=== PATIENT | male | born 1965 | race Caucasian/White ===

== ENCOUNTER 2023-03-03 10:36 | Emergency (ER) | payer OTHER, SELFPAY ==
[2023-03-03 10:37] VITALS: BP 170/105; PULSE 86; RESP 16; TEMP 36.6; O2SAT 96; BMI 30.3
--- NOTE | 2023-03-03 10:53 | VDLE_ITS ---
Reason For Study: LEG PAIN RIGHT LEFT GSV is normal. CFV is compressible, spontaneous, phasic, CFV is compressible, spontaneous, phasic, competent, and demonstrates normal competent and demonstrates normal augmentation. augmentation. FV is compressible, spontaneous, phasic, competent and demonstrates normal augmentation. POP V is compressible, spontaneous and phasic. T/P Trunk is compressible. Acute deep vein thrombosis is noted in the Gastrocnemius V. It is dilated and NONCOMPRESSIBLE. Acute deep vein thrombosis is noted in the PTV. It is dilated and NONCOMPRESSIBLE. Acute deep vein thrombosis is noted in the Per V. It is dilated and NONCOMPRESSIBLE. Procedure This is a venous duplex using B-mode, color flow and spectral Doppler. Exam performed portable in ED. The exam was diagnostic. A preliminary report was called and/or faxed to Dr. Caraballo. VL/Venous Duplex US, Unilateral Interpretation Summary Acute deep venous thrombosis right gastrocnemius, posterior tibial, and peronea l veins. Patent and compressible right great saphenous vein Normal flow patterns left common femoral vein Ordering Physician: Edmund Caraballo Referring Physician: N/A Performed By: Yoan Bennett RVT
--- NOTE | 2023-03-03 10:53 | ED.VIS.LOWEX ---
HPI History of Present Illness HPI Narrative: Patient presents with right leg pain and swelling that has been constant for the past 3 to 4 weeks. Patient states that it began after a 3-hour car ride to [place] and back. Patient states his pain is mainly over the right calf. Patient states he has some tingling in his second, third, and fourth toes. Patient denies any trauma or injury. Patient describes his pain as aching. Patient states it is worse with ambulation. Patient denies any weakness. Patient has been using a compression stocking which has been helping with some of the swelling. Chief Complaint: Lower Extremity Injury Informant: patient Onset/Context/Timing Onset: Month(s) (1) Context: Gradual Onset Timing: Continuous Quality of Pain: Aching Location: Right leg Worsened by: Ambulation Relieved by: Nothing Associated Symptoms Associated Symptoms: Positive for Parasthesia; Negative for Weakness or Loss of [facility]untion [facility] History (Updated 03/03/23 @ 13:[address] Edmund Caraballo DO) Hypertension Home Medications apixaban 5 mg tablet (Eliquis) 5 mg PO BID #74 tabs 03/03/23 [Rx Last Taken Unknown] Allergy/AdvReac Type Severity Reaction Status Date / Time sulfamethoxazole Allergy Other Verified 03/03/23 10:40 [From Bactrim] trimethoprim [From Bactrim] Allergy Other Verified 03/03/23 10:40 adhesive tape AdvReac Rash Verified 03/03/23 10:40 Surgical History (Updated 03/03/23 @ 10:[address] Edmund Caraballo DO) Hx of cholecystectomy Social History Smoking Status: Never smoker ROS ROS ED Constitutional Constitutional ED: Denies chills or fever(s) Eyes Eyes: Denies blurry vision or change in vision ENT ENT ED: Denies rhinorrhea or sore throat Cardiovascular Cardiovascular: Denies chest pain or palpitations Respiratory/Chest Respiratory/Chest: Denies cough or dyspnea Gastrointestinal Gastrointestinal: Denies nausea or vomiting Genitourinary Genitourinary ED: Denies dysuria or hematuria Musculoskeletal Musculoskeletal: Denies back pain or neck pain Integumentary Denies abscess or rash Neurologic Neurologic: Denies headache(s) or weakness Allergic/Immunologic Allergic/Immunologic ED: Denies mouth swelling or urticaria EXAM Physical Exam Const Vital Signs: 03/03/23 10:37 Temperature 97.8 F Temperature Source Temporal Pulse Rate 86 Respiratory Rate 16 Blood Pressure 170/105 H Blood Pressure Mean 126 Pulse Ox 96 Oxygen Delivery Method Room Air Positive well nourished and well developed General Appearance ED: well developed and NAD HEENT Reports moist mucous membranes Neck full ROM and supple Extremity Extremity Narrative: There is tenderness and edema over the right calf. There is no ecchymosis. There is no bony crepitance or step-off. There is no obvious deformity. Posterior tibial pulses and pedal pulses are equal bilaterally. Sensation was intact to light touch in all digits. Capillary refill was less than 2 seconds in all digits. There is no cyanosis or pallor noted. Neuro oriented x3, CN's II-XII intact bilaterally, moves all extremities and no sensory deficits noted Sensorium / Orientation: alert Motor Exam: strength 5/5 throughout Psych mental status grossly normal Skin Skin Narrative: Skin is warm and dry. There is no ecchymosis or pallor noted. There is no cyanosis noted. MDM MDM MDM Narrative Medical decision making narrative: Differential diagnosis includes muscular strain and DVT of the right calf. Venous duplex of the right lower extremity will be obtained to assess for DVT. Radiography Diagnostic Testing: Venous duplex of the right lower extremity showed DVT in the gastrocnemius vein, posterior tibial vein, and peroneal vein. Treatment and Re-Evaluation Narrative: Patient was advised of his findings. Patient was given a dose of Eliquis here. Patient was given a prescription for Eliquis. Patient was instructed to keep his leg elevated. Patient was given referral for primary care physician. Patient was instructed to take Tylenol as needed for pain. Patient understood and was agreeable with the plan. All questions were answered. Discharge Plan Triage Chief Complaint: Lower Extremity Injury ED Provider: Edmund Caraballo Dx/Rx/DC Orders Clinical Impression: Acute deep vein thrombosis (DVT) of right lower extremity Instructions: ED Deep Vein Thrombosis (DVT) Prescriptions: New Eliquis 5 mg tablet 5 mg PO BID Qty: 74 0RF Rx Instructions: 10 mg twice a day for the first week. Then 5 mg twice a day. Primary Care Provider: Care Physician,No Primary Referrals: Emely Rico DO [Med Staff - Journeyman Operator Assistant] - 5-7 Days NOT,DEFINED [Non-Staff] - Disposition Disposition: Home, Self Care
[2023-03-03] MEDS: HYDROcodone Bitartrate/Apap 5/325 Tablet PO (10:57)
[2023-03-03] MEDS: APIXABAN 5 MG TABLET 10 MG PO (13:53)
== END 2023-03-03 14:04 | disposition home or self-care (01) ==
PROVIDERS: Emergency Provider Emergency Medicine; Visit Provider Emergency Medicine
DX: I82.401 Acute embolism and thrombosis of unspecified deep veins of right lower extremity (principal); I10 Essential (primary) hypertension
CPT/HCPCS: 93971; 99283

== ENCOUNTER → 2023-09-24 | Outpatient (CLI) | payer SELFPAY ==
--- NOTE | 2023-09-24 09:23 | VDLE_ITS ---
Reason For Study: RLE DVT Follow Up RIGHT LEFT GSV is normal. CFV is compressible, spontaneous, phasic, CFV is compressible, spontaneous, phasic, competent, and demonstrates normal competent and demonstrates normal augmentation. augmentation. FV is compressible, spontaneous, phasic, competent and demonstrates normal augmentation. POP V is compressible, spontaneous, phasic, competent and demonstrates normal augmentation. T/P Trunk is compressible. RT PerV is compressible. Rt GastrocV and Rt PTV are partially compressible with bright intraluminal echoes consistent with Chronic DVT. Procedure This is a venous duplex using B-mode, color flow and spectral Doppler. Exam performed in department. A preliminary report was called and/or faxed to Dr. Griggs. VL/Venous Duplex US, Unilateral Interpretation Summary Chronic deep venous thrombosis right gastrocnemius and posterior tibial veins Patent and compressible right great saphenous vein Normal flow patterns left common femoral vein Improvement noted from the previous examination of March 03, 2023 Ordering Physician: Marylin Griggs Referring Physician: Marylin Griggs Performed By: Shilpi Duque, BIENVENIDO, RVT
== END | disposition home or self-care (01) ==
PROVIDERS: PCP Internal Medicine; Referring Provider Internal Medicine; Visit Provider Internal Medicine
DX: I82.4Y1 Acute embolism and thrombosis of unspecified deep veins of right proximal lower extremity (principal)
CPT/HCPCS: 93971

== ENCOUNTER → 2024-09-19 15:39 | Outpatient (REF) | payer MEDICAID, SELFPAY ==
[2024-09-19 16:20] LABS: Estradiol 26.3 pg/mL
[2024-09-21 07:28] LABS: PROGESTERONE 0.2 ng/mL (0.0-0.5)
[2024-09-23 13:08] LABS: DHEA Sulfate 97.2 ug/dL (48.9-344.2); G6PD Quant Test 300 (127-427); Red Blood Cell Count Test/G6PD 5.21 x10E6/uL (4.14-5.80)
== END ==
LOC: LABSPEC 15:39
PROVIDERS: PCP Internal Medicine; Referring Provider Nurse Practitioner Family; Visit Provider Nurse Practitioner Family
DX: E29.1 Testicular hypofunction (principal); R53.82 Chronic fatigue, unspecified; R06.00 Dyspnea, unspecified
CPT/HCPCS: 82627; 82670; 82955; 84144; 84403; 82626

== ENCOUNTER → 2024-12-08 | Outpatient (CLI) | payer MEDICAID, SELFPAY ==
--- NOTE | 2024-12-08 12:58 | VDLE_ITS ---
Reason For Study Reason For Study: Hx of DVT RIGHT LEFT CFV is compressible, spontaneous, phasic, competent GSV is normal. and demonstrates normal augmentation. CFV is compressible, spontaneous, phasic, competent, Procedure and demonstrates normal augmentation. This is a venous duplex using B-mode, color flow and FV is compressible, spontaneous, phasic, competent spectral Doppler. and demonstrates normal augmentation. Exam performed in department. POP V is compressible, spontaneous, phasic, competent A preliminary report was called and/or faxed to Jose and demonstrates normal augmentation. DO Kayla. T/P Trunk is compressible. PTV is compressible. LT PerV is compressible. VL/Venous Duplex US, Unilateral Interpretation Summary Deep veins of the left lower extremity are patent and compressible segmentally. There is no evidence of left lower extremity deep vein thrombosis. The left great saphenous vein appears patent an d compressible segmentally. Ordering Physician: Jose Garza Referring Physician: Jose Garza Performed By: Shilpi Duque RVT, RDCS and Student
== END | disposition home or self-care (01) ==
LOC: CVS 12:57
PROVIDERS: PCP Family Medicine; Referring Provider Family Medicine; Visit Provider Family Medicine
DX: M79.662 Pain in left lower leg (principal); Z86.718 Personal history of other venous thrombosis and embolism
CPT/HCPCS: 93971

== ENCOUNTER 2025-03-20 10:50 | Inpatient (IN) | payer MEDICAID, SELFPAY ==
[2025-03-20] VITALS (7 sets, daily range): BP systolic 158–165; BP diastolic 89–104; PULSE 87–95; RESP 17–24; TEMP 36.8–37.3; O2SAT 90–96; BMI 32.5
--- NOTE | 2025-03-20 10:52 | EKG12_ITS ---
Test Reason : CP Blood Pressure : */* mmHG Vent. Rate : 95 BPM Atrial Rate : 95 BPM P-R Int : 176 ms QRS Dur : 144 ms QT Int : 404 ms P-R-T Axes : 32 5 8 degrees QTcB Int : 507 ms Normal sinus rhythm Right bundle branch block Abnormal ECG Confirmed by TETE DE LOS SANTOS, GERSON ([id number]), scientific publications editor ABDOUL GRAYSON ([id number]) on 03/24/2025 7:03:25 AM Referred By: Jim Cast Confirmed By: GERSON EPSTEIN MD
--- NOTE | 2025-03-20 11:03 | CT_ITS ---
PROCEDURE: ABDOMEN/PELVIS W IV CONT ONLY 03/20/2025 REASON FOR EXAM: EPIGASTRIC ABDOMINAL PAIN. TECHNIQUE: Abdomen and pelvis CT with intravenous contrast. Coronal and Sagittal reconstruction series were provided. PATIENT PREPARATION: Per protocol ORAL CONTRAST TYPE: None. CONTRAST: Isovue-300 VOLUME: 100 mL One or more dose reduction techniques were used (e.g., Automated exposure control, adjustment of the mA and/or kV according to patient size, use of iterative reconstruction technique. RADIATION DOSE SUMMARY: CTDlvol: 18.2 mGy DLP: 1678.13 mGycm COMPARISON: None FINDINGS: Lung bases: Unremarkable Liver: Diffuse fatty infiltration. Gallbladder: Surgically absent. Spleen: Normal size. Pancreas: Normal size without evidence of mass surrounding inflammation or ductal dilation. Adrenals: Unremarkable Kidneys: Unremarkable Bladder: Unremarkable Small right inguinal hernia containing fat. Bowel: Colonic diverticulosis without diverticulitis. Appendix: Unremarkable Lymph nodes: No suspicious lymph node enlargement. Vasculature: Unremarkable Peritoneum / Retroperitoneum: Unremarkable Bones: Degenerative changes of the spine. CT/Abdomen/Pelvis W IV Cont ONLY IMPRESSION: Diffuse fatty infiltration of the liver. Status post cholecystectomy. OVERALL FINAL ASSESSMENT: . LI-RADS is not meant to be used in patients <18 years or patients with cirrhosi s due to congenital hepatic fibrosis or due to vascular disorders, because these patients have a lower chance of developing HC C. Reading Location: [place] [id number]
--- NOTE | 2025-03-20 11:04 | ED.VIS.GI ---
HPI HPI - GI History of Present Illness Chief Complaint: Abd Pain Detail of Chief Complaint: Epigastric abdominal pain. Informant: patient and spouse/S.O. Abdominal Pain/Flank Pain Onset: Days Context: Sudden Onset Timing: Continuous Quality: Aching Location: Diffuse and Epigastric Current Severity: Moderate Maximum Severity: Moderate Worsened by: Nothing Relieved by: Nothing Nausea/Vomiting/Emesis GI Symptom: Positive for Nausea and Vomiting Onset: Today Severity: Mild Diarrhea/Melena/Hematochezia GI Symptom: Positive for - (Constipation); Negative for Diarrhea, Melena or Hematochezia Associated Symptoms Associated Symptoms: Negative for Dysuria, Frequency, Hematuria or Urgency Narrative Narrative: 59-year-old male history of prior DVT no longer on any anticoagulants. History of cholecystectomy. History of ventral hernia repair with mesh done earlier this year at [place]. States for 2 and half days since Sunday has developed sudden onset of epigastric and diffuse abdominal pain. Going to his back. Associated with nausea and vomiting today. No diarrhea. No melena. No hematemesis. No fever or weight loss. No prior history of this pain. Decreased appetite. Denies any dysuria. Prior similar symptoms: No Recent Illness/Hospitalization: No PFSH PFS Medical History Hypertension History of dislocation of knee HLD (hyperlipidemia) DVT (deep venous thrombosis) Home Medications ?Medication ?Instructions ?Recorded ?Last Taken ?Type cholecalciferol (vitamin D3) 125 125 mcg PO DAILY 10/04/23 Unknown History mcg (5,000 unit) capsule coenzyme Q10 30 mg capsule 30 mg PO DAILY 10/04/23 Unknown History losartan 100 mg tablet 100 mg PO DAILY 10/04/23 Unknown History diindolylmethane 50 mg-herbal 1 cap PO DAILY 03/20/25 Unknown History drugs 50 mg capsule (DIM-plus) fluconazole 200 mg tablet 400 mg PO DAILY 03/20/25 Unknown History methocarbamol 500 mg tablet 500 mg PO DAILY 03/20/25 03/19/25 History primaquine 26.3 mg (15 mg base) 2 tab PO DAILY 03/20/25 Unknown History tablet testosterone cypionate 200 mg/mL 200 mg IM QWEEK 03/20/25 03/11/25 History intramuscular oil Allergy/AdvReac Type Severity Reaction Status Date / Time sulfamethoxazole (From Allergy Other Verified 03/20/25 10:53 Bactrim) trimethoprim (From Bactrim) Allergy Other Verified 03/20/25 10:53 adhesive tape AdvReac Rash Verified 03/20/25 10:53 Family History Other Asthma Breast cancer CAD (coronary artery disease) CVA (cerebral vascular accident) Heart disease Hypertension Myocardial infarction Surgical History Hx of cholecystectomy Social History Smoking Status: Never smoker ROS ROS ED ROS Narrative Abdominal pain. Nausea vomiting. Constipation. Constitutional Constitutional ED: Denies chills or fever(s) ENT ENT ED: Denies ear pain Cardiovascular Cardiovascular: Denies chest pain Respiratory/Chest Respiratory/Chest: Denies cough or dyspnea Gastrointestinal Gastrointestinal: Reports abdominal pain, constipation, nausea and vomiting; Denies diarrhea or melena Genitourinary Genitourinary ED: Denies dysuria or hematuria Musculoskeletal Musculoskeletal: Reports back pain; Denies arthralgias Integumentary Denies abscess Neurologic Neurologic: Denies headache(s) Psychiatric Psychiatric: Denies anxiety Endocrine Endocrinology: Denies polydipsia Hematologic/Lymphatic Hematologic/Lymphatic: Denies easy bleeding Allergic/Immunologic Allergic/Immunologic ED: Denies mouth swelling, tongue swelling or urticaria EXAM Physical Exam Narrative Exam Narrative: 59-year-old male sitting upright in bed. Vital signs are stable afebrile. at bedside. H EENT exam pupils round reactive light. Mytrex membranes. Neck nontender no JVD. No lymphadenopathy. Lungs clear to auscultation bilaterally. Heart regular rhythm rate about 95 no murmur. Chest wall ribs nontender. Abdomen mildly distended. Decreased bowel sounds. Tender primarily in the epigastric region. No rebound or guarding. No rigidity. No obvious hernia or mass. No pulsatile mass. Right upper right lower quadrant unremarkable. Moving all 4 extremities. Nontender no edema. Normal strength. Back nontender. Neurologically is awake alert. Answering questions following commands. Const Vital Signs: 03/20/25 10:51 03/20/25 11:50 03/20/25 12:00 Temperature 98.4 F Temperature Source Oral Pulse Rate 95 89 87 Respiratory Rate 22 H 24 H Blood Pressure 162/104 H Blood Pressure Mean 123 Pulse Ox 96 94 95 Oxygen Delivery Method Room Air Room Air Room Air Positive well nourished and well developed; Negative for cachectic, contractures or unkempt General Appearance ED: well developed; Negative for unkempt, cachectic, contractures, NAD or pallor Nutritional Appearance: Negative for cachectic HEENT Reports moist mucous membranes normocephalic and atraumatic Eyes PERRL and EOMs intact bilaterally General Eye ED: Negative for pale conjunctiva or scleral icterus Neck no lymphadenopathy, supple and no JVD Resp normal respiratory effort and clear to auscultation bilaterally Cardio regular rate, regular rhythm, S1 normal heart sound, S2 normal heart sound and no murmurs GI no masses; Negative for non-tender or non-distended Inspection: abdominal distention Auscultation: hypoactive bowel sounds Palpation: soft and tender; Negative for guarding, rigid, hernia, mass, pulsatile mass or rebound tenderness present Back/Spine no CVA tenderness General Back: Negative for CVA tenderness Cervical Spine: Negative for cervical spine tenderness Thoracic Spine / Upper Back: Negative for thoracic spinal tenderness Lumbar Spine / Lower Back: Negative for lumbar spinal tenderness Extremity full ROM General Extremety ED: Negative for edema or tenderness General Extremity: Negative for edema Neuro CN's II-XII intact bilaterally Sensorium / Orientation: alert, oriented to person, oriented to place and oriented to time; Negative for orientation impaired, confused, lethargic or stuporous Motor Exam: strength 5/5 throughout Psych mental status grossly normal and thought process normal Appearance: Negative for unkempt Mood & Affect: Negative for depressed, anxious or tearful Skin no wounds General Skin Exam: Negative for jaundice or pallor Lesions: no lesions Rashes: no rashes MDM MDM MDM Narrative Medical decision making narrative: 59-year-old male abdominal pain for 2 and half days started Sunday. Differential would include pancreatitis, bowel obstruction, AAA, gastritis versus other etiologies. CAT scan and labs are being obtained. He will be treated with IV morphine for pain and Zofran. IV fluids. Repeat exam patient improved at 12:46 PM. He is having additional pain I will be given a second dose of morphine. His labs are consistent with acute pancreatitis. The hospitalist on page for admission. History & Record Review Discussion w/independent historian: Patient Additional record(s) reviewed:: Prior inpatient record, Prior outpatient record, Prior ED visit and Prior labs Lab Data Attestation: I reviewed the patient's lab results. Lab results narrative: CBC shows an elevated white count of 14.9. H&H is 17 and 51. Platelets of 271. CAT scan of the abdomen read by the radiologist showed no acute abnormality. No obstruction. No AAA. Chemistry shows sodium 134. Gap 12. Normal BUN and creatinine 12 and 0.8. Glucose 125. Liver enzymes are normal. Lipase is elevated at 479. UA negative. No nitrates. No white or red cells. No bacteria. Labs: Laboratory Results - last 24 hr 03/20/25 03/20/25 10:55 12:06 WBC 14.9 H RBC 5.46 Hgb 17.4 H Hct 51.6 MCV 94.5 H MCH 31.9 MCHC 33.7 RDW Std Deviation 46.7 H RDW Coeff of Marty 13.6 Plt Count 281 MPV 10.6 Immature Gran % (Auto) 0.700 Neut % (Auto) 82.7 H Lymph % (Auto) 4.6 L [place] % (Auto) 11.5 H Eos % (Auto) 0.2 Baso % (Auto) 0.3 Absolute Neuts (auto) 12.3 H Absolute Lymphs (auto) 0.69 L Nucleated RBC % 0 Sodium 134 Potassium 4.1 Chloride 96 L Carbon Dioxide 25.3 Anion Gap 12 BUN 12 Creatinine 0.86 Estim Creat Clear Calc 119.66 Est GFR (MDRD) Non-Af 99 BUN/Creatinine Ratio 13.8 Glucose 125 H Calcium 9.0 Total Bilirubin 0.48 AST 26 ALT 30 Alkaline Phosphatase 83 Total Protein 7.5 Albumin 4.3 Globulin 3.3 Albumin/Globulin Ratio 1.3 Lipase 479 H Urine Color Yellow Urine Clarity Sl. Cloudy Urine pH 8.0 Ur Specific [place] 1.010 Urine Protein 15 H Urine Glucose (UA) Normal Urine Ketones Negative Urine Occult Blood Negative Urine Nitrite Negative Urine Bilirubin Negative Urine Urobilinogen Normal Ur Leukocyte Esterase Negative Urine RBC 0 SEEN Urine WBC 0-5 SEEN Ur Squamous Epith Cells 0 SEEN Amorphous Sediment 1+ PHOS Urine Bacteria 0 SEEN Urine Mucus 0 SEEN Radiography Diagnostic Testing: Clinical Impression(s) from Imaging Studies Abdomen/Pelvis CT 03/20/25 11:03 IMPRESSION: Diffuse fatty infiltration of the liver. Status post cholecystectomy. OVERALL FINAL ASSESSMENT: . LI-RADS is not meant to be used in patients <18 years or patients with cirrhosis due to congenital hepatic fibrosis or due to vascular disorders, because these patients have a lower chance of developing HCC. Reading Location: [place] [address] Rhythm Strip Rhythm Strip: Sinus Rhythm Rate: 95 Ectopy: None EKG Initial EKG: Attestation: I personally reviewed and interpreted this EKG as follows: Interpretation: Sinus Rhythm, No Acute Injury Pattern and RBBB Discharge Plan Triage Chief Complaint: Abd Pain ED Provider: Yuval Balbuena Dx/Rx/DC Orders Clinical Impression: Abdominal pain, Acute pancreatitis Prescriptions: No Action cholecalciferol (vitamin D3) 125 mcg (5,000 unit) capsule 125 mcg PO DAILY losartan 100 mg tablet 100 mg PO DAILY coenzyme Q10 30 mg capsule 30 mg PO DAILY fluconazole 200 mg tablet 400 mg PO DAILY primaquine 26.3 mg (15 mg base) tablet 2 tab PO DAILY Patient Comments: PT TAKES AT BEDTIME testosterone cypionate 200 mg/mL oil 200 mg IM QWEEK Patient Comments: PT DOES ON WEDNESDAYS DIM-plus 50-50 mg capsule 1 cap PO DAILY methocarbamol 500 mg tablet 500 mg PO DAILY Patient Comments: PT ONLY HAS TAKEN ONCE, TOOK 2 ON 03/19/25. Primary Care Provider: Jose Garza Referrals: Jose Garza DO [Primary Care Provider] - Print Language: Spanish Disposition Disposition: [facility]3] Care [facility]
[2025-03-20] MEDS: 0.9% Normal Saline (1000mL) 1,000 ML 999 ML IV (11:17)
[2025-03-20] MEDS: morphine 8 MG/ML Syringe 6 MG IV ×2 (11:17→12:54)
[2025-03-20] MEDS: Ondansetron 4 MG/2 ML Vial IV (11:17)
[2025-03-20 11:43] LABS: Absolute Lymphocyte Count 0.69 X10^3/uL (0.83-4.51); Absolute Neutrophil Count 12.3 X10^3/uL (2.0-7.7); Basophil# 0.05 X10^3/uL; Basophil% 0.3 % (0-1); Eosinophil# 0.03 X10^3/uL; Eosinophils% 0.2 % (0-5); Hematocrit 51.6 % (40-54); Hemoglobin 17.4 g/dL (13.0-16.5); Lymphocyte # 0.69 X10^3/ul (0.83-4.51); Lymphocyte % 4.6 % (19-41); Mean Corp Hgb Conc 33.7 g/dL (32-36); Mean Corpuscular Hgb 31.9 pg (27.0-32.0); Mean Corpuscular Volume 94.5 fL (80-94); Mean Platelet Vol. 10.6 fl (6.2-12.0); Monocyte# 1.71 X10^3/uL; Monocyte% 11.5 % (0-10); NRBC Flagged by Analyzer 0 % (0-5); Neutrophil # 12.29 X10^3/uL (2.7-7.7); Neutrophil % 82.7 % (47-70); POSITIVE DIFFERENTIAL YES; Platelet Count 281 K/mm3 (150-450); RBC Distribution Width CV 13.6 % (11.6-14.6); RBC Distribution Width SD 46.7 fl (35.1-43.9); Red Blood Count 5.46 M/mm3 (4.6-6.2); White Blood Count 14.9 K/mm3 (4.4-11.0)
[2025-03-20 11:44] LABS: Differential Indicated SCAN CRITERIA MET
[2025-03-20 12:01] LABS: ALB/GLOB Ratio 1.3 RATIO (0.9-2.4); AST(SGOT) 26 U/L (<=37); Alanine Aminotransfer ALT/SGPT 30 U/L (<=46); Albumin, Serum 4.3 g/dL (3.4-4.8); Alkaline Phosphatase 83 U/L (40-129); Anion Gap 12 (5-15); BUN 12 mg/dL (4-19); BUN/Creat Ratio 13.8 RATIO (10-20); Carbon Dioxide 25.3 mmol/L (21.0-32.0); Chloride 96 mmol/L (98-108); Creatinine, Serum 0.86 mg/dL (0.70-1.20); EST Glomerular Filtration Rate 99 (>60); Estimated Creatinine Clearance 119.66 ml/min (50-250); Globulin 3.3 g/dL (2.2-4.2); Glucose 125 mg/dL (70-99); Potassium 4.1 mmol/L (3.3-5.1); Protein, Total 7.5 g/dL (5.9-8.4); Sodium Level 134 mmol/L (133-145); Total Bilirubin 0.48 mg/dL (0.00-1.30)
[2025-03-20 12:15] LABS: Lipase 479 U/L (13-75)
[2025-03-20 12:20] LABS: Bacteria 0 SEEN /hpf (None Seen); Mucous, Urine 0 SEEN /hpf (<or=2+); Red Blood Cells-Urine 0 SEEN /hpf (0-5); Squamous Epithelial Cells - UA 0 SEEN /hpf (0-5)
[2025-03-20 12:24] LABS: Color, Urine Yellow (Yellow); Glucose, Dipstick Normal (Normal); Ketone-Dipstick Negative (Negative); Leukocyte Esterase-Dipstick Negative /ul (Negative); Nitrite-Dipstick Negative (Negative); Occult Blood-Urine Negative /ul (Negative); Protein-Dipstick 15 mg/dl (Negative); Urine Bilirubin Dipstick Negative (Negative); Urine Clarity Sl. Cloudy (Clear); Urine Urobilinogen Normal (Normal)
[2025-03-20 12:34] LABS: Amorphous Sediment 1+ PHOS; White Blood Cells 0-5 SEEN /hpf (0-5)
--- NOTE | 2025-03-20 13:21 | PCM.HP.STD ---
HPI - General General Date of Admission: 03/20/25 HPI Narrative VANITA SOSA, is a 59 M who presents to the hospital with abdominal pain. His pain is mostly in the epigastric region and started 2 to 3 days ago. It does radiate to his back but he is unsure if it is related to food intake or not. It is not completely gone away, it waxes and wanes in intensity. He does have some nausea and vomiting because of the pain but no diarrhea. CT scan of the abdomen pelvis shows he does not have a gallbladder and there is no stranding or inflammation around his pancreas, just shows some fatty infiltration of the liver. His hemoglobin is elevated indicating dehydration, he did receive IV fluids in the ER as well as some pain meds. At the moment the source of pancreatitis is unclear but it does appear to be mild. He does state that there was no association with food but once the pain started he could not really eat all that much. 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 We did discuss that Diflucan does not treat those 2 infections, it does appear that his providers are part of an integrative health network that mostly does neurofeedback and sell supplements, he takes diindolylmethane which is associated with rash, nausea, vomiting, diarrhea as well as visual impairment and stroke. 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 Both of these medications are good to be discontinued as they are potentially causing all of his symptoms. [facility] Medical History Hypertension History of dislocation of knee HLD (hyperlipidemia) DVT (deep venous thrombosis) Home Medications ?Medication ?Instructions ?Recorded ?Last Taken ?Type cholecalciferol (vitamin D3) 125 125 mcg PO DAILY 10/04/23 Unknown History mcg (5,000 unit) capsule coenzyme Q10 30 mg capsule 30 mg PO DAILY 10/04/23 Unknown History losartan 100 mg tablet 100 mg PO DAILY 10/04/23 Unknown History diindolylmethane 50 mg-herbal 1 cap PO DAILY 03/20/25 Unknown History drugs 50 mg capsule (DIM-plus) fluconazole 200 mg tablet 400 mg PO DAILY 03/20/25 Unknown History methocarbamol 500 mg tablet 500 mg PO DAILY 03/20/25 03/19/25 History primaquine 26.3 mg (15 mg base) 2 tab PO DAILY 03/20/25 Unknown History tablet testosterone cypionate 200 mg/mL 200 mg IM QWEEK 03/20/25 03/11/25 History intramuscular oil Allergy/AdvReac Type Severity Reaction Status Date / Time sulfamethoxazole (From Allergy Other Verified 03/20/25 10:53 Bactrim) trimethoprim (From Bactrim) Allergy Other Verified 03/20/25 10:53 adhesive tape AdvReac Rash Verified 03/20/25 10:53 Family History Other Asthma Breast cancer CAD (coronary artery disease) CVA (cerebral vascular accident) Heart disease Hypertension Myocardial infarction Surgical History Hx of cholecystectomy Social History Smoking Status: Never smoker ROS Constitutional Constitutional: Denies chills, fatigue, fever(s) or malaise Eyes Eyes: Denies blurry vision ENT HEENT: Denies headache(s) or nasal discharge Cardiovascular Cardiovascular: Denies chest pain, dyspnea on exertion or syncope Respiratory/Chest Respiratory/Chest: Denies cough, shortness of breath at rest or shortness of breath with exertion Gastrointestinal Gastrointestinal: Reports abdominal pain, nausea and vomiting; Denies constipation or diarrhea Genitourinary Genitourinary: Denies dysuria Neurologic Neurologic: Denies focal weakness, numbness or tremor(s) Psychiatric Psychiatric: Denies anxiety or depression Vital Signs Vital Signs Vital Signs: 03/20/25 10:51 03/20/25 11:50 03/20/25 12:00 Temperature 98.4 F Temperature Source Oral Pulse Rate 95 89 87 Respiratory Rate 22 H 24 H Blood Pressure 162/104 H Blood Pressure Mean 123 Pulse Ox 96 94 95 Oxygen Delivery Method Room Air Room Air Room Air 03/20/25 13:00 Temperature Temperature Source Pulse Rate 91 Respiratory Rate 17 Blood Pressure 165/90 H Blood Pressure Mean 115 Pulse Ox 91 Oxygen Delivery Method Room Air Weight Weight: 246 lb 4.101 oz Body Mass Index (BMI) 32.5 Physical Exam Narrative General: Alert, Oriented x3, Cooperative, No apparent distress HEENT: Atraumatic, PERRLA, EOMI, Normocephalic Oral: Dry mucosa Neck: Supple, No JVD Lungs: Diminished, Normal air movement, No rhonchi, No wheeze, No rales Cardiovascular: Regular rate, Regular Rhythm, Normal S1, Normal S2, No murmurs Abdomen: Soft, no tenderness to palpation, Non-Distended, No Hepato-splenomegaly Extremities: No edema, Capillary Refill Less than 3 Seconds Skin: No rashes, No breakdown Musculoskeletal: No Tenderness to Palpation of Joints or Extremities Neurological: No focal neurological deficits, Motor Exam 5/5 strength throughout, Sensory exam intact to light touch and pain Psych/Mental Status: Normal Affect, Appropriate Results Lab / Micro Data 03/20/25 10:55 03/20/25 10:55 Labs: Laboratory Results - last 24 hr 03/20/25 10:55: WBC 14.9 H, RBC 5.46, Hgb 17.4 H, Hct 51.6, MCV 94.5 H, MCH 31.9, MCHC 33.7, RDW Std Deviation 46.7 H, RDW Coeff of Marty 13.6, Plt Count 281, MPV 10.6, Immature Gran % (Auto) 0.700, Neut % (Auto) 82.7 H, Lymph % (Auto) 4.6 L, [place] % (Auto) 11.5 H, Eos % (Auto) 0.2, Baso % (Auto) 0.3, Absolute Neuts (auto) 12.3 H, Absolute Lymphs (auto) 0.69 L, Nucleated RBC % 0, Sodium 134, Potassium 4.1, Chloride 96 L, Carbon Dioxide 25.3, Anion Gap 12, BUN 12, Creatinine 0.86, Estim Creat Clear Calc 119.66, Est GFR (MDRD) Non-Af 99, BUN/Creatinine Ratio 13.8, Glucose 125 H, Calcium 9.0, Total Bilirubin 0.48, AST 26, ALT 30, Alkaline Phosphatase 83, Total Protein 7.5, Albumin 4.3, Globulin 3.3, Albumin/Globulin Ratio 1.3, Lipase 479 H 03/20/25 12:06: Urine Color Yellow, Urine Clarity Sl. Cloudy, Urine pH 8.0, Ur Specific [place] 1.010, Urine Protein 15 H, Urine Glucose (UA) Normal, Urine Ketones Negative, Urine Occult Blood Negative, Urine Nitrite Negative, Urine Bilirubin Negative, Urine Urobilinogen Normal, Ur Leukocyte Esterase Negative, Urine RBC 0 SEEN, Urine WBC 0-5 SEEN, Ur Squamous Epith Cells 0 SEEN, Amorphous Sediment 1+ PHOS, Urine Bacteria 0 SEEN, Urine Mucus 0 SEEN Rhythm Strip Rhythm Strip: Sinus Rhythm Rate: 95 Ectopy: None Imaging Radiology Impression Abdomen/Pelvis CT 03/20/25 11:03 IMPRESSION: Diffuse fatty infiltration of the liver. Status post cholecystectomy. OVERALL FINAL ASSESSMENT: . LI-RADS is not meant to be used in patients <18 years or patients with cirrhosis due to congenital hepatic fibrosis or due to vascular disorders, because these patients have a lower chance of developing HCC. Reading Location: [facility] Assessment & Plan Assessment/Plan (1) Acute pancreatitis: PLAN: Plan 1. Acute pancreatitis versus medication toxicity ? Lipase is elevated but CT scan is negative for peripancreatic stranding or inflammation he does not have any tenderness on palpation ? Will treat this like pancreatitis because of the elevated lipase however my concern is that this may be related to toxicity from medications given that he is on an antifungal to treat both a bacterial and parasitic infection that he only has antibodies to with no sign of active infection, he is on a herbal medication that is not regulated that can lead to many of the symptoms that he is exhibiting and then he is on an antimalarial drug in the absence of proof that he has malaria ? Will make him n.p.o. and continue with IV fluids ? Pain management ? Triglycerides are normal at 100 2. Essential HTN ? Will hold his losartan as well as this can be implicated in pancreatitis ? Will monitor make adjustments as necessary DVT: Lovenox 75 minutes was spent on direct patient care, including documentation as well as chart review and collaboration with colleagues Charges/Coding Visit Charges Inpatient E&M: 11054 Init Hosp L3
--- NOTE | 2025-03-20 13:44 | CASEMGMT ---
Care Management Face to Face with patient for initial transition planning/care coordination assessment in the ED. This senior technical writer introduced self and role at [facility]. Patient asleep, but patient's , Mariah, willing to participate in assessment and is able to answer all questions appropriately. Care providers, pharmacy, and demographics verified. Admitting Diagnosis: acute pancreatitis suspected due to lab work Other diagnosis history: hypertension, HLD, DVT PCP: Jose Garza Specialists: none Preferred Pharmacy: [facility] Insurance: [employer] Medicaid Prescription Benefit: yes Living Will/HPOA: none and denies needing information LNOK: , Mariah. Living Arrangements: with in a ranch style home; independent with all ADLs/IADLs. Transportation: patient drives DME: none HHC: none SNF/Rehab: none Community Resources: none Behavioral Health History: none Patient goals: Patient wishes to discharge home, denies need for home health care at this time. Patient's denies any further needs or concerns at this time. Disposition Plan: admission to acute; RN CM/SW to follow for discharge planning needs that may arise. Nupur Howard, TEACHER MUSIC, PLASTIC INJECTION MOLD MAKER
[2025-03-20] MEDS: 0.9% Normal Saline (1000mL) 1,000 ML 100 ML IV (14:52)
[2025-03-20] MEDS: Morphine 2 MG/ML Syringe IV ×3 (14:59→21:30)
[2025-03-20 16:25] LABS: Cholesterol 220 mg/dL (<=200); High Density Lipoprotein 45 mg/dL; Low Density Lipoprotein Calc. 155 mg/dL; Triglycerides 100 mg/dL; Very Low Density Lipoprotein 20 mg/dL (5-40); cholesterol:hdl ratio screen 4.85
[2025-03-20] MEDS: Ketorolac 15 MG/ML Vial IV (17:19)
[2025-03-20] MEDS: 0.9% Normal Saline (1000mL) 1,000 ML 200 ML IV (20:39)
[2025-03-20] MEDS: Pantoprazole Sodium 40 MG in 0.9% Normal Saline (100mL MB+) 100 ML 330 MG IV (20:41)
[2025-03-20] MEDS: HYDROmorphone 1 MG/ML Syringe IV (23:03)
[2025-03-21] VITALS (17 sets, daily range): BP systolic 128–168; BP diastolic 48–94; PULSE 63–92; RESP 16–20; TEMP 36.2–37; O2SAT 90–97
[2025-03-21] MEDS: 0.9% Normal Saline (1000mL) 1,000 ML 200 ML IV ×5 (02:04→23:59)
[2025-03-21] MEDS: Morphine 2 MG/ML Syringe IV ×2 (02:12→08:35)
[2025-03-21] MEDS: Ketorolac 15 MG/ML Vial IV (06:23)
[2025-03-21 06:32] LABS: Absolute Lymphocyte Count 0.51 X10^3/uL (0.83-4.51); Absolute Neutrophil Count 16.1 X10^3/uL (2.0-7.7); Basophil# 0.04 X10^3/uL; Basophil% 0.2 % (0-1); Eosinophil# 0.02 X10^3/uL; Eosinophils% 0.1 % (0-5); Hematocrit 47.6 % (40-54); Hemoglobin 15.9 g/dL (13.0-16.5); Lymphocyte # 0.51 X10^3/ul (0.83-4.51); Lymphocyte % 2.7 % (19-41); Mean Corp Hgb Conc 33.4 g/dL (32-36); Mean Corpuscular Hgb 31.8 pg (27.0-32.0); Mean Corpuscular Volume 95.2 fL (80-94); Mean Platelet Vol. 10.4 fl (6.2-12.0); Monocyte# 1.78 X10^3/uL; Monocyte% 9.6 % (0-10); NRBC Flagged by Analyzer 0 % (0-5); Neutrophil # 16.12 X10^3/uL (2.7-7.7); POSITIVE DIFFERENTIAL YES; Platelet Count 243 K/mm3 (150-450); RBC Distribution Width CV 13.8 % (11.6-14.6); RBC Distribution Width SD 48.3 fl (35.1-43.9); White Blood Count 18.6 K/mm3 (4.4-11.0)
[2025-03-21 06:36] LABS: Differential Indicated SCAN CRITERIA MET
[2025-03-21 07:04] LABS: ALB/GLOB Ratio 1.2 RATIO (0.9-2.4); AST(SGOT) 28 U/L (<=37); Alanine Aminotransfer ALT/SGPT 27 U/L (<=46); Albumin, Serum 3.7 g/dL (3.4-4.8); Alkaline Phosphatase 84 U/L (40-129); Anion Gap 11 (5-15); BUN 11 mg/dL (4-19); BUN/Creat Ratio 13.3 RATIO (10-20); Calcium,Total 8.4 mg/dL (7.6-11.0); Carbon Dioxide 21.1 mmol/L (21.0-32.0); Chloride 100 mmol/L (98-108); Creatinine, Serum 0.83 mg/dL (0.70-1.20); EST Glomerular Filtration Rate 100 (>60); Estimated Creatinine Clearance 123.99 ml/min (50-250); Globulin 3.2 g/dL (2.2-4.2); Glucose 112 mg/dL (70-99); Potassium 4.4 mmol/L (3.3-5.1); Protein, Total 6.9 g/dL (5.9-8.4); Sodium Level 132 mmol/L (133-145); Total Bilirubin 0.91 mg/dL (0.00-1.30)
[2025-03-21 07:15] LABS: Differential Comment SCANNED
[2025-03-21] MEDS: Pantoprazole Sodium 40 MG in 0.9% Normal Saline (100mL MB+) 100 ML 330 MG IV (08:40)
--- NOTE | 2025-03-21 09:14 | MRI_ITS ---
PROCEDURE: MRI ABD WITH AND W/O CONTRAST 03/21/2025 REASON FOR EXAM: SEVERE ABDOMINAL PAIN, PANCREATITIS TECHNIQUE: MRI of the upper abdomen before and after 23 cc IV Clariscan intravenous gadolinium-based contrast. Multiplanar and multisequence images were obtained. CONTRAST: Clariscan VOLUME: 23mL gauge IV COMPARISON: CT abdomen and pelvis 522 2024 FINDINGS: Liver: Normal Biliary: Unremarkable. Gallbladder is not identified. Prior exam suggests history of cholecystectomy well. No evidence of choledocholithiasis on 3D reconstructed images of the biliary tree. Pancreas: Subtle decreased enhancement is seen in the pancreatic head. There is subtle peripancreatic fat stranding at this location. The amount of fat stranding on the current MRI study is similar to what was on the prior CT exam. Spleen: Normal Adrenals: Unremarkable Kidneys: Parapelvic cysts left kidney. Kidneys are otherwise unremarkable. Peritoneum / Retroperitoneum: No free fluid or free air. Lymph Nodes: No lymphadenopathy. Major Vessels: No abnormality of the major vessels Bones: Unremarkable MRI/MRI Abd WITH and W/O Contrast IMPRESSION: Subtle pancreatitis involving the pancreatic head, not significantly changed si nce the prior CT exam of 03/20/2025 OVERALL FINAL ASSESSMENT: . LI-RADS is not meant to be used in patients <18 years or patients with cirrhosi s due to congenital hepatic fibrosis or due to vascular disorders, because these patients have a lower chance of developing HC C. Reading [facility]
[2025-03-21] MEDS: HYDROmorphone 1 MG/ML Syringe IV ×4 (09:42→20:46)
--- NOTE | 2025-03-21 10:18 | CT_ITS ---
PROCEDURE: SOFT TISSUE NECK WITH CONTRAST 03/21/2025 REASON FOR EXAM: UVULITIS 602.86 TECHNIQUE: CT of the soft tissues of the neck from the orbits to the upper mediastinum 92 CONTRAST: 92 VOLUME: 100 ML 18 gauge IV One or more dose reduction techniques were used (e.g., Automated exposure control, adjustment of the mA and/or kV according to patient size, use of iterative reconstruction technique). RADIATION DOSE SUMMARY: CTDlvol: 35.65 mGy DLP: 195 0.2 1959.2 mGycm COMPARISON: None. FINDINGS: Airway: Airways narrowly patent at the nasopharynx. Uvula appears thickened and swollen. Oropharyngeal airway also appears narrowed, but not occluded. Waldeyer's ring appears thickened and swollen. No tonsillar abscess identified Salivary glands: Unremarkable Lymph nodes: Many small lymph nodes are seen subjacent to the sternocleido mastoid muscles Thyroid: Unremarkable as seen. Partially obscured by streak artifact Vasculature: Extracranial common carotid and internal carotids are patent without plaque Orbits: Unremarkable. Globes and lenses are normal. No inflamed fat in the retro septal space Paranasal sinuses and mastoids: predominantly clear Lung apices: Unremarkable. Upper mediastinum: Normal Bones: No acute process. Multilevel degenerative loss of disc height with endplate spondylosis Other: CT/Soft Tissue Neck WITH Contrast IMPRESSION: Inflammatory process involving the uvula and Waldeyer's ring. Several small bilateral lymph nodes subjacent to the sternocleidomastoid muscle s, likely reactive Other findings as above. Reading Location: [facility]
--- NOTE | 2025-03-21 10:18 | CT_ITS ---
PROCEDURE: SPINE LUMBAR WITH CONTRAST REASON FOR EXAM: SEVERE LOWER BACK PAIN . TECHNIQUE: Lumbar spine CT with contrast. CONTRAST: 100 mL of Isovue 370 One or more dose reduction techniques were used (e.g., Automated exposure control, adjustment of the mA and/or kV according to patient size, use of iterative reconstruction technique). RADIATION DOSE SUMMARY: DLP: 1959 mGycm COMPARISON: None FINDINGS: Vertebrae: Mild multilevel degenerative changes. No acute compression deformity. No significant subluxations. Alignment: Grossly unremarkable L1-2: No significant disc bulge or herniation. No significant foraminal or central canal stenosis. L2-3: No significant disc bulge or herniation. No significant foraminal or central canal stenosis. L3-4: No significant disc bulge or herniation. No significant foraminal or central canal stenosis. L4-5: Mild disc bulge and bilateral facet hypertrophy contributing to mild central canal stenosis and mild bilateral foramina stenosis. L5-S1: Mild disc bulge and bilateral facet hypertrophy contributing to mild central canal stenosis, mild right foraminal stenosis, and moderate left foraminal stenosis. Visualized portions of the kidneys appear unremarkable. CT/Spine Lumbar WITH Contrast IMPRESSION: No acute compression fracture or deformity. No significant subluxations. Mild multilevel degenerative changes most prominent at L4-L5 and L5-S1 where there is mild central canal stenosis and multilevel bipin kip stenosis. Reading Location: [id number]
[2025-03-21 11:11] LABS: Lipase 1200 U/L (13-75)
[2025-03-21] MEDS: 0.9% Saline Lock 10 ML Syringe IV ×2 (11:50→20:41)
[2025-03-21] MEDS: Piperacil/Tazobactam 3.375 GM in 0.9% Normal Saline (50mL MB+) 50 ML IV ×2 (11:55→23:18)
[2025-03-21] MEDS: Enoxaparin 40 MG/0.4 ML Syringe SC (12:02)
[2025-03-21] MEDS: Vancomycin HCl 2,000 MG in 0.9% Normal Saline (500mL Bag) 500 ML 250 MG IV (12:04)
[2025-03-21] MEDS: 0.9% Normal Saline (250mL Bag) 250 ML 15 ML IV (12:05)
[2025-03-21 12:56] LABS: Lactic Acid 2.9 mmol/L (0.0-2.0)
--- NOTE | 2025-03-21 12:58 | PN_ITS ---
Subjective Subjective Patient seen and examined. His was by his bedside. He complained of abdominal pain, mainly in the epigastric region and radiating to his back. He also complained of swelling at the back of his throat. He denied any slurred speech or difficulty swallowing. He admitted to fever and chills. Review of systems is otherwise negative. His vitals have remained stable and he has remained on room air. Objective Data Objective Data Vital Signs: Vital Signs Temp Pulse Resp BP Pulse Ox O2 Del Method 98.5 F 92 18 168/81 H 97 Room Air 03/21/25 12:41 03/21/25 12:41 03/21/25 12:41 03/21/25 12:41 03/21/25 12:41 03/21/25 12:41 Oxygen Delivery Method Room Air Weight: 246 lb 4.101 oz Body Mass Index (BMI) 32.5 Intake & Output: Intake and Output for Last 24 Hours 03/19/25 03/20/25 03/21/25 23:59 23:59 23:59 Intake Total 2027. / 2027.2092. / 2092.33 Balance / / 33 Lab / Micro Data 03/21/25 06:03 03/21/25 06:03 Labs: Laboratory Results - last 24 hr 03/20/25 11:04: Triglycerides 100, Cholesterol 220 H, LDL Cholesterol, Calc 155, VLDL Cholesterol 20, HDL Cholesterol 45, Cholesterol/HDL Ratio 4.85 03/21/25 06:03: WBC 18.6 H, RBC 5.00, Hgb 15.9, Hct 47.6, MCV 95.2 H, MCH 31.8, MCHC 33.4, RDW Std Deviation 48.3 H, RDW Coeff of [place] 13.8, Plt Count 243, MPV 10.4, Immature Gran % (Auto) 0.400, Neut % (Auto) 87.0 H, Lymph % (Auto) 2.7 L, [place] % (Auto) 9.6, Eos % (Auto) 0.1, Baso % (Auto) 0.2, Absolute Neuts (auto) 16.1 H, Absolute Lymphs (auto) 0.51 L, Nucleated RBC % 0, Differential Comment SCANNED, Sodium 132 L, Potassium 4.4, Chloride 100, Carbon Dioxide 21.1, Anion Gap 11, BUN 11, Creatinine 0.83, Estim Creat Clear Calc 123.99, Est GFR (MDRD) Non-Af 100, BUN/Creatinine Ratio 13.3, Glucose 112 H, Calcium 8.4, Total Bilirubin 0.91, AST 28, ALT 27, Alkaline Phosphatase 84, Total Protein 6.9, Albumin 3.7, Globulin 3.2, Albumin/Globulin Ratio 1.2, Lipase 1200 H 03/21/25 12:15: Lactic Acid 2.9 H* Radiography Diagnostic Testing: Radiology Impression Abdomen/Pelvis CT 03/20/25 11:03 IMPRESSION: Diffuse fatty infiltration of the liver. Status post cholecystectomy. OVERALL FINAL ASSESSMENT: . LI-RADS is not meant to be used in patients <18 years or patients with cirrhosis due to congenital hepatic fibrosis or due to vascular disorders, because these patients have a lower chance of developing HCC. Reading Location: [facility] 03/21/25 10:18 IMPRESSION: No acute compression fracture or deformity. No significant subluxations. Mild multilevel degenerative changes most prominent at L4-L5 and L5-S1 where there is mild central canal stenosis and multilevel foramina stenosis. Reading Location: [id number] Soft Tissue Neck CT 03/21/25 10:18 IMPRESSION: Inflammatory process involving the uvula and Waldeyer's ring. Several small bilateral lymph nodes subjacent to the sternocleidomastoid muscles, likely reactive Other findings as above. Reading Location[facility] Rhythm Strip Rhythm Strip: Sinus Rhythm Rate: 95 Ectopy: None Physical Exam Const alert Constitutional Narrative: in moderate distress due to the abdominal pain. HEENT normocephalic, head/scalp atraumatic and moist oral mucous membranes HEENT Narrative: uvula is swollen, erythematous, mildly swollen tonsils, bilateral mild parotid swelling which he says has been present for 10 years, and is nontender Eyes PERRL and EOMs intact bilaterally Neck no lymphadenopathy and supple Lymph Lymphatic: no lymphadenopathy noted and no lymphedema noted Resp Resp Narrative: diminished breath sounds bibasally, no wheezes or crackles. on room air. Cardio regular rate, regular rhythm, S1 normal heart sound and S2 normal heart sound GI normal to inspection, nondistended, normoactive bowel sounds and soft to palpation GI Narrative: moderate epigastric tenderness, no guarding or rebound tenderness. Extremity normal capillary refill, no clubbing, cyanosis or edema and no calf tenderness General Extremity: no tenderness to palpation of joints or extremities Neuro CN's II-XII intact bilaterally, no focal motor deficits and no sensory deficits noted Motor Exam: strength 5/5 throughout and general weakness Psych thought process normal and cooperative Psych Narrative: patient anxious Assessment & Plan Assessment/Plan (1) Acute pancreatitis: (2) Uvulitis: PLAN: Plan #Acute pancreatitis * Admitted with a complaint of epigastric pain. CT of the abdomen and pelvis done did not show any evidence of pancreatitis. However lipase was elevated at 429. * Repeat lipase done today is thousand 200. He still complain of the epigastric pain. Triglycerides were not elevated. CT showed the gallbladder was surgically absent. * Will continue keeping n.p.o. and hydrate aggressively with IV fluid. Will switch pain meds from IV morphine to IV Dilaudid as that works better for his pain. * Will get MRCP to further delineate the pancreas as the CT abdomen showed normal pancreas without evidence of mass, surrounding inflammation or ductal dilation. * If pain persist will consult gastroenterology. * in light of the pancreatitis and uvulitis, I do wonder if he may have had some viral throat infection with superimposed bacterial tonsillitis and uvulitis, with a virus now possibly causing the pancreatitis. He has bilateral mild parotid swelling but says this is chronic and it is nontender. stat soft tissue CT of the head and neck showed that the salivary glands were unremarkable * * #Acute uvulitis and tonsilitis * patient complains of pain and swelling of the uvula. He denies any muffled voice or difficulty swallowing. * stat CT of the head and neck also showed inflammatory process of the uvula and Waldeyer's ring as well as several small bilateral lymph nodes subjacent to the sternocleidomastoid muscles * will get throat culture. Start on IV vancomycin and zosyn as etiology is not very clear * start on IV solumedrol 40mg q8 also * lactic acid is elevated at 2.9. Wbc has also trended up to 18.6 today * out of an abundance of precaution, i will transfer him to the ICU for monitoring overnight, due to concerns about possible airway compromise. As at now he is on room air and maintaining hsi airway * Per black top spreader machine operator, there is no ENT electronic transaction implementer today for no doc patients. * very low threshold to initiate transfer and intubate if airway is compromised * will hold off on critical care consult for now as he is hemodynamically stable and maintaining his airway. * #SIRS criteria * Patient has elevated white cell count and lactic acid is also 2.9. He also has a focus of infection namely the uvulitis * blood cultures ordered as well as throat culture * on IV vancomycin and zosyn * patient transferred to ICU out of precaution. * being hydrated with IVF * #Hyperlipidemia: on statin #Remote history of DVT: stable. Not on anticoagulation. #Hypertension: on losartan, which is on h old as he is NPO. IV hydralazine prn #History of lyme disease and babesiosis * Patient's states he was previously treated with oral antibiotics for the Lyme disease. * He was also subsequently started on primaquine for the babesiosis. * hold primaquine for now * DVT prophylaxis: lovenox Code status: full code Disposition: transfer to ICU Charges/Coding Visit Charges Inpatient E&M: 85256 Subs Hosp L3
--- NOTE | 2025-03-21 14:02 | NURSING ---
pt send to ICU CT scan results were back and worried about pt's airway so sent there - pt was not complaining about neck sweeling... sats were good
--- NOTE | 2025-03-21 14:47 | PCM.RX.CS ---
Consult Antibiotic Management Pharmacy has been consulted to manage selected antibiotic: Vancomycin Type of Intervention Type of Consult: Suspected Infection Suspected Infection: Other Labs Labs: Sodium 132 mmol/L (133-145) L 03/21/25 06:03 Potassium 4.4 mmol/L (3.3-5.1) 03/21/25 06:03 Chloride 100 mmol/L (98-108) 03/21/25 06:03 Carbon Dioxide 21.1 mmol/L (21.0-32.0) 03/21/25 06:03 Anion Gap 11 (5-15) 03/21/25 06:03 BUN 11 mg/dL (4-19) 03/21/25 06:03 Creatinine 0.83 mg/dL (0.70-1.20) 03/21/25 06:03 Est GFR (MDRD) Non-Af 100 (>60) 03/21/25 06:03 BUN/Creatinine Ratio 13.3 RATIO (10-20) 03/21/25 06:03 Glucose 112 mg/dL (70-99) H 03/21/25 06:03 Goal Trough Goal Trough: 15-20 mcg/mL Pharmacy Plan for Drug Dosing Pharmacy Plan for Drug Dosing: IV VANCOMYCIN Consulting Physician: Dr. Quiñonez Indication: R/O infection (unclear source) Goal Trough: 15-20 SrCr: 0.83 CrCl: 124 mL/min Comments: patient had loading dose ordered and administered 03/21 @1204 Vancomycin Dose: 1500mg IV Q8h to start 03/21/25 @2000 Pending Level: 03/22/25 @1130, prior to 4th total dose per protocol Pharmacy Service will continue to monitor and adjust dosing as required.
[2025-03-21] MEDS: Vancomycin HCl 1,500 MG in 0.9% Normal Saline (500mL Bag) 500 ML 250 MG IV (20:41)
[2025-03-22] VITALS (14 sets, daily range): BP systolic 124–167; BP diastolic 67–117; PULSE 61–75; RESP 15–23; TEMP 36.5–36.8; O2SAT 91–97; BMI 32.4
[2025-03-22] MEDS: HYDROmorphone 1 MG/ML Syringe IV ×4 (03:23→20:21)
[2025-03-22] MEDS: Vancomycin HCl 1,500 MG in 0.9% Normal Saline (500mL Bag) 500 ML 250 MG IV (05:10)
[2025-03-22] MEDS: 0.9% Normal Saline (1000mL) 1,000 ML 200 ML IV ×4 (05:10→21:14)
[2025-03-22 06:25] LABS: Absolute Lymphocyte Count 0.39 X10^3/uL (0.83-4.51); Absolute Neutrophil Count 17.8 X10^3/uL (2.0-7.7); Basophil# 0.03 X10^3/uL; Basophil% 0.2 % (0-1); Hematocrit 46.6 % (40-54); Hemoglobin 15.7 g/dL (13.0-16.5); Lymphocyte # 0.39 X10^3/ul (0.83-4.51); Lymphocyte % 2.1 % (19-41); Mean Corp Hgb Conc 33.7 g/dL (32-36); Mean Corpuscular Hgb 31.9 pg (27.0-32.0); Mean Corpuscular Volume 94.7 fL (80-94); Mean Platelet Vol. 11.3 fl (6.2-12.0); Monocyte# 0.41 X10^3/uL; Monocyte% 2.2 % (0-10); NRBC Flagged by Analyzer 0 % (0-5); Neutrophil # 17.78 X10^3/uL (2.7-7.7); Neutrophil % 95.1 % (47-70); POSITIVE DIFFERENTIAL YES; Platelet Count 285 K/mm3 (150-450); RBC Distribution Width CV 13.6 % (11.6-14.6); RBC Distribution Width SD 47.7 fl (35.1-43.9); Red Blood Count 4.92 M/mm3 (4.6-6.2); White Blood Count 18.7 K/mm3 (4.4-11.0)
[2025-03-22 06:38] LABS: ALB/GLOB Ratio 1.1 RATIO (0.9-2.4); AST(SGOT) 25 U/L (<=37); Alanine Aminotransfer ALT/SGPT 33 U/L (<=46); Albumin, Serum 3.6 g/dL (3.4-4.8); Alkaline Phosphatase 87 U/L (40-129); Anion Gap 12 (5-15); BUN 13 mg/dL (4-19); BUN/Creat Ratio 19.3 RATIO (10-20); Calcium,Total 8.4 mg/dL (7.6-11.0); Carbon Dioxide 18.8 mmol/L (21.0-32.0); Chloride 104 mmol/L (98-108); Creatinine, Serum 0.67 mg/dL (0.70-1.20); EST Glomerular Filtration Rate 107 (>60); Estimated Creatinine Clearance 153.13 ml/min (50-250); Globulin 3.2 g/dL (2.2-4.2); Glucose 133 mg/dL (70-99); Potassium 4.3 mmol/L (3.3-5.1); Protein, Total 6.9 g/dL (5.9-8.4); Sodium Level 135 mmol/L (133-145)
[2025-03-22] MEDS: Piperacil/Tazobactam 3.375 GM in 0.9% Normal Saline (50mL MB+) 50 ML IV ×3 (07:57→21:12)
[2025-03-22] MEDS: 0.9% Saline Lock 10 ML Syringe IV ×2 (07:57→14:23)
--- NOTE | 2025-03-22 09:21 | PN_ITS ---
Subjective Subjective Patient seen and examined. His abdominal pain has improved. His throat swelling has also improved. Review of systems is otherwise negative. He has remained hemodynamically stable. Objective Data Objective Data Vital Signs: Vital Signs Temp Pulse Resp BP Pulse Ox O2 Del Method 98.2 F 71 16 148/86 H 95 Room Air 03/22/25 03:00 03/22/25 07:00 03/22/25 07:00 03/22/25 07:00 03/22/25 07:00 03/22/25 07:00 Oxygen Delivery Method Room Air Weight: 244 lb 11.41 oz Body Mass Index (BMI) 32.4 Intake & Output: Intake and Output for Last 24 Hours 03/20/25 03/21/25 03/22/25 23:59 23:59 23:59 Intake Total 2027.33 / 2027.33 6271.58 / 6271.58 1580 / 1580 Balance 2027.33 / 2027.33 6271.58 / 6271.58 1580 / 1580 Lab / Micro Data 03/22/25 03:30 03/22/25 03:30 Labs: Laboratory Results - last 24 hr 03/21/25 06:03: Lipase 1200 H 03/21/25 12:15: Lactic Acid 2.9 H* 03/22/25 03:30: WBC 18.7 H, RBC 4.92, Hgb 15.7, Hct 46.6, MCV 94.7 H, MCH 31.9, MCHC 33.7, RDW Std Deviation 47.7 H, RDW Coeff of Marty 13.6, Plt Count 285, MPV 11.3, Immature Gran % (Auto) 0.400, Neut % (Auto) 95.1 H, Lymph % (Auto) 2.1 L, [place] % (Auto) 2.2, Eos % (Auto) 0.0, Baso % (Auto) 0.2, Absolute Neuts (auto) 17.8 H, Absolute Lymphs (auto) 0.39 L, Nucleated RBC % 0, Sodium 135, Potassium 4.3, Chloride 104, Carbon Dioxide 18.8 L, Anion Gap 12, BUN 13, Creatinine 0.67 L, Estim Creat Clear Calc 153.13, Est GFR (MDRD) Non-Af 107, BUN/Creatinine Ratio 19.3, Glucose 133 H, Calcium 8.4, Total Bilirubin 0.70, AST 25, ALT 33, Alkaline Phosphatase 87, Total Protein 6.9, Albumin 3.6, Globulin 3.2, Albumin/Globulin Ratio 1.1 Radiography Diagnostic Testing: Radiology Impression Abdomen MRI 03/21/25 09:14 IMPRESSION: Subtle pancreatitis involving the pancreatic head, not significantly changed since the prior CT exam of 03/20/2025 OVERALL FINAL ASSESSMENT: . LI-RADS is not meant to be used in patients <18 years or patients with cirrhosis due to congenital hepatic fibrosis or due to vascular disorders, because these patients have a lower chance of developing HCC. Reading [facility] Lumbar Spine CT 03/21/25 10:18 IMPRESSION: No acute compression fracture or deformity. No significant subluxations. Mild multilevel degenerative changes most prominent at L4-L5 and L5-S1 where there is mild central canal stenosis and multilevel foramina stenosis. Reading Location: [id number] Soft Tissue Neck CT 03/21/25 10:18 IMPRESSION: Inflammatory process involving the uvula and Waldeyer's ring. Several small bilateral lymph nodes subjacent to the sternocleidomastoid muscles, likely reactive Other findings as above. Reading [facility] Rhythm Strip Rhythm Strip: Sinus Rhythm Rate: 95 Ectopy: None Physical Exam Const alert, oriented x3 and no apparent distress Constitutional Narrative: abdominal pain has improved. HEENT normocephalic, head/scalp atraumatic, moist oral mucous membranes, oropharynx normal and gingiva normal Eyes PERRL and EOMs intact bilaterally Neck no lymphadenopathy and supple Lymph Lymphatic: no lymphadenopathy noted and no lymphedema noted Resp Resp Narrative: diminished breath sounds bibasally, no wheezes or crackles. on room air. Cardio regular rate, regular rhythm, S1 normal heart sound, S2 normal heart sound and no murmurs GI normal to inspection, nondistended, normoactive bowel sounds and soft to palpation GI Narrative: minimal Extremity normal capillary refill, no clubbing, cyanosis or edema and no calf tenderness General Extremity: no tenderness to palpation of joints or extremities Skin General Skin Exam: no breakdown Neuro CN's II-XII intact bilaterally, no focal motor deficits and no sensory deficits noted Motor Exam: strength 5/5 throughout and general weakness Psych thought process normal and cooperative Appearance: appropriate Assessment & Plan Assessment/Plan (1) Acute pancreatitis: (2) Uvulitis: PLAN: Plan #Acute pancreatitis * Admitted with a complaint of epigastric pain. CT of the abdomen and pelvis done did not show any evidence of pancreatitis. * Lipase patient has thousand 200. Epigastric pain has improved today. Triglycerides were not elevated and gallbladder is surgically absent. * MRCP did show mild pancreatitis with inflammation and fat stranding around the pancreas. * abdominal pain is a bit better today. He is open to trying a clear liquid diet * will start on clear liquid diet and advance slowly as tolerated * continue gentle hydration with IVF for now. * #Acute uvulitis and tonsilitis * the throat swelling and pain have improved today * he has remained on room air. * stat CT of the head and neck also showed inflammatory process of the uvula and Waldeyer's ring as well as several small bilateral lymph nodes subjacent to the sternocleidomastoid muscles * throat culture and blood cultures pending. * will transfer out of ICU to regular floor today as he has remained stable on room air. * continue IV antibiotics and IV solumedrol * #SIRS criteria * Patient has elevated white cell count and lactic acid is also 2.9. He also has a focus of infection namely the uvulitis * blood cultures ordered as well as throat culture * on IV vancomycin and zosyn * wbc is still elevated, but he is on IV solumedrol, so this may also be contributiing. * #Hyperlipidemia: on statin #Remote history of DVT: stable. Not on anticoagulation. #Hypertension: on losartan, which was held as he is NPO. IV hydralazine prn. #History of lyme disease and babesiosis * Patient's states he was previously treated with oral antibiotics for the Lyme disease. * He was also subsequently started on primaquine for the babesiosis. * hold primaquine for now * DVT prophylaxis: lovenox Code status: full code Disposition: transfer to med surg Charges/Coding Visit Charges Inpatient E&M: 16635 Subs Hosp L2
[2025-03-22] MEDS: Enoxaparin 40 MG/0.4 ML Syringe SC (10:24)
[2025-03-22 12:05] LABS: Vancomycin, Trough Level 12.8 ug/mL (5.0-15.0)
--- NOTE | 2025-03-22 12:33 | PCM.RX.CS ---
Consult Antibiotic Management Pharmacy has been consulted to manage selected antibiotic: Vancomycin Type of Intervention Type of Consult: Follow-up Labs Labs: Sodium 135 mmol/L (133-145) 03/22/25 03:30 Potassium 4.3 mmol/L (3.3-5.1) 03/22/25 03:30 Chloride 104 mmol/L (98-108) 03/22/25 03:30 Carbon Dioxide 18.8 mmol/L (21.0-32.0) L 03/22/25 03:30 Anion Gap 12 (5-15) 03/22/25 03:30 BUN 13 mg/dL (4-19) 03/22/25 03:30 Creatinine 0.67 mg/dL (0.70-1.20) L 03/22/25 03:30 Est GFR (MDRD) Non-Af 107 (>60) 03/22/25 03:30 BUN/Creatinine Ratio 19.3 RATIO (10-20) 03/22/25 03:30 Glucose 133 mg/dL (70-99) H 03/22/25 03:30 Vancomycin Trough 12.8 ug/mL (5.0-15.0) 03/22/25 11:28 Goal Trough Goal Trough: 15-20 mcg/mL Pharmacy Plan for Drug Dosing Pharmacy Plan for Drug Dosing: VANCOMYCIN LEVEL RECEIVED Current Vancomycin Dose: 1500mg IV Q8h Number of Doses Received: 3 (loading + 2 scheduled) Vancomycin Level: 12.8 Hours Since Last Dose: 6.25hr Renal Function: 0.67 Renal Function Trend: stable Lab/Micro: Cultures pending Vancomycin Plan/Comments: Patient had a trough drawn which resulted in a trough value of 12.8 (goal 15-20). patient's trough was below therapeutic goal. Will increase the dose slightly to 1750mg IV Q8h and recheck a trough in 24hr to assess dosing Pending Level: 03/23/25 @1230, prior to 4th dose of new regimen. Pharmacy Service will continue to monitor and adjust dosing as required.
[2025-03-22] MEDS: Pantoprazole Sodium 40 MG in 0.9% Normal Saline (100mL MB+) 100 ML 330 MG IV (12:40)
[2025-03-22] MEDS: Vancomycin Trough/Random Due 1 LAB MC (12:41)
--- NOTE | 2025-03-22 12:59 | NURSING ---
report called to MARY Owen
[2025-03-22] MEDS: Vancomycin HCl 1,750 MG in 0.9% Normal Saline (500mL Bag) 500 ML 250 MG IV ×2 (14:09→21:12)
[2025-03-23 04:00] VITALS: BP 155/89; PULSE 71; RESP 15; TEMP 37.2; O2SAT 95
[2025-03-23] MEDS: Vancomycin HCl 1,750 MG in 0.9% Normal Saline (500mL Bag) 500 ML 250 MG IV (04:46)
[2025-03-23 06:00] VITALS: BMI 33.9
[2025-03-23] MEDS: Ketorolac 15 MG/ML Vial IV (06:25)
[2025-03-23] MEDS: Piperacil/Tazobactam 3.375 GM in 0.9% Normal Saline (50mL MB+) 50 ML IV ×3 (06:30→20:14)
[2025-03-23 08:14] LABS: Absolute Lymphocyte Count 0.49 X10^3/uL (0.83-4.51); Absolute Neutrophil Count 19.1 X10^3/uL (2.0-7.7); Basophil# 0.03 X10^3/uL; Basophil% 0.1 % (0-1); Hematocrit 43.4 % (40-54); Hemoglobin 14.8 g/dL (13.0-16.5); Lymphocyte # 0.49 X10^3/ul (0.83-4.51); Lymphocyte % 2.3 % (19-41); Mean Corp Hgb Conc 34.1 g/dL (32-36); Mean Corpuscular Hgb 31.6 pg (27.0-32.0); Mean Corpuscular Volume 92.7 fL (80-94); Mean Platelet Vol. 10.2 fl (6.2-12.0); Monocyte# 1.38 X10^3/uL; Monocyte% 6.5 % (0-10); NRBC Flagged by Analyzer 0 % (0-5); Neutrophil # 19.13 X10^3/uL (2.7-7.7); Neutrophil % 90.3 % (47-70); POSITIVE DIFFERENTIAL YES; Platelet Count 309 K/mm3 (150-450); RBC Distribution Width CV 13.6 % (11.6-14.6); RBC Distribution Width SD 46.2 fl (35.1-43.9); Red Blood Count 4.68 M/mm3 (4.6-6.2); White Blood Count 21.2 K/mm3 (4.4-11.0)
[2025-03-23 08:31] LABS: Anion Gap 9 (5-15); BUN 13 mg/dL (4-19); BUN/Creat Ratio 20.4 RATIO (10-20); Calcium,Total 8.2 mg/dL (7.6-11.0); Chloride 106 mmol/L (98-108); Creatinine, Serum 0.63 mg/dL (0.70-1.20); EST Glomerular Filtration Rate 109 (>60); Estimated Creatinine Clearance 162.86 ml/min (50-250); Glucose 121 mg/dL (70-99); Sodium Level 136 mmol/L (133-145)
[2025-03-23 08:35] VITALS: BP 172/96; PULSE 66; RESP 18; TEMP 36.4; O2SAT 95
[2025-03-23] MEDS: 0.9% Saline Lock 10 ML Syringe IV ×2 (08:37→14:05)
[2025-03-23] MEDS: Enoxaparin 40 MG/0.4 ML Syringe SC (08:37)
[2025-03-23] MEDS: HYDROmorphone 1 MG/ML Syringe IV ×3 (08:37→20:09)
[2025-03-23] MEDS: Pantoprazole Sodium 40 MG in 0.9% Normal Saline (100mL MB+) 100 ML 330 MG IV (08:37)
--- NOTE | 2025-03-23 10:07 | PN_ITS ---
Subjective Subjective Patient seen and examined. He said he was able to tolerate clear liquid diet but does have a bit of pain. He had received IV pain meds this morning so his pain is not as bad. He denies any nausea or vomiting. His throat also feels much better. Review of systems otherwise negative. His white cell count is up to 21.2 today, likely due to the steroids. Objective Data Objective Data Vital Signs: Vital Signs Temp Pulse Resp BP Pulse Ox O2 Del Method 97.6 F L 66 18 172/96 H 95 Room Air 03/23/25 08:35 03/23/25 08:35 03/23/25 08:35 03/23/25 08:35 03/23/25 08:35 03/23/25 08:40 Oxygen Delivery Method Room Air Weight: 256 lb Body Mass Index (BMI) 33.9 Intake & Output: Intake and Output for Last 24 Hours 03/21/25 03/22/25 03/23/25 23:59 23:59 23:59 Intake Total 6271.58 / 6271.58 6120 / 6220 1785 / 1785 Balance 6271.58 / 6271.58 6120 / 6220 1785 / 1785 Lab / Micro Data 03/23/25 07:50 03/23/25 07:50 Labs: Laboratory Results - last 24 hr 03/22/25 11:28: Vancomycin Trough 12.8 03/23/25 07:50: WBC 21.2 H, RBC 4.68, Hgb 14.8, Hct 43.4, MCV 92.7, MCH 31.6, MCHC 34.1, RDW Std Deviation 46.2 H, RDW Coeff of Marty 13.6, Plt Count 309, MPV 10.2, Immature Gran % (Auto) 0.800, Neut % (Auto) 90.3 H, Lymph % (Auto) 2.3 L, [place] % (Auto) 6.5, Eos % (Auto) 0.0, Baso % (Auto) 0.1, Absolute Neuts (auto) 19.1 H, Absolute Lymphs (auto) 0.49 L, Nucleated RBC % 0, Sodium 136, Potassium 4.0, Chloride 106, Carbon Dioxide 20.0 L, Anion Gap 9, BUN 13, Creatinine 0.63 L , Estim Creat Clear Calc 162.86, Est GFR (MDRD) Non-Af 109, BUN/Creatinine Ratio 20.4 H, Glucose 121 H, Calcium 8.2 Rhythm Strip Rhythm Strip: Sinus Rhythm Rate: 95 Ectopy: None Physical Exam Const alert, oriented x3 and no apparent distress Constitutional Narrative: abdominal pain has improved. HEENT normocephalic, head/scalp atraumatic, moist oral mucous membranes, oropharynx normal and gingiva normal Eyes PERRL and EOMs intact bilaterally Neck no lymphadenopathy and supple Lymph Lymphatic: no lymphadenopathy noted and no lymphedema noted Resp Resp Narrative: diminished breath sounds bibasally, no wheezes or crackles. on room air. Cardio regular rate, regular rhythm, S1 normal heart sound, S2 normal heart sound and no murmurs GI normal to inspection, nondistended, normoactive bowel sounds and soft to palpation GI Narrative: minimal epigatric tenderness, no guarding or rebound tenderness Extremity normal capillary refill, no clubbing, cyanosis or edema and no calf tenderness General Extremity: no tenderness to palpation of joints or extremities Skin General Skin Exam: no breakdown Neuro CN's II-XII intact bilaterally, no focal motor deficits and no sensory deficits noted Motor Exam: strength 5/5 throughout and general weakness Psych thought process normal and cooperative Psych Narrative: patient anxious Appearance: appropriate Assessment & Plan Assessment/Plan (1) Acute pancreatitis: (2) Uvulitis: PLAN: Plan #Acute pancreatitis * Admitted with a complaint of epigastric pain. CT of the abdomen and pelvis done did not show any evidence of pancreatitis. * Lipase patient has thousand 200. Epigastric pain has improved today. Triglycerides were not elevated and gallbladder is surgically absent. * MRCP did show mild pancreatitis with inflammation and fat stranding around the pancreas. * he was able to tolerate the clear liquid diet yesterday, though he still complains of some abdominal pain * continue on clear liquid * * #Acute uvulitis and tonsilitis * the throat swelling and pain have improved markedly * he has remained on room air. * stat CT of the head and neck also showed inflammatory process of the uvula and Waldeyer's ring as well as several small bilateral lymph nodes subjacent to the sternocleidomastoid muscles * throat culture and blood cultures pending. * continue IV antibiotics. Will dc IV steroids today * #SIRS criteria * Patient has elevated white cell count and lactic acid is also 2.9. He also has a focus of infection namely the uvulitis * blood cultures ordered as well as throat culture * on IV vancomycin and zosyn * wbc is still elevated at 21.2 today, but he is on IV solumedrol, so this may also be contributing. Will dc IV solumedrol. * #Hyperlipidemia: on statin #Remote history of DVT: stable. Not on anticoagulation. #Hypertension: on losartan, which was held as he is NPO. IV hydralazine prn. #History of lyme disease and babesiosis * Patient's states he was previously treated with oral antibiotics for the Lyme disease. * He was also subsequently started on primaquine for the babesiosis. * hold primaquine for now * DVT prophylaxis: lovenox Code status: full code Charges/Coding Visit Charges Inpatient E&M: 91405 Subs Hosp L2
[2025-03-23] MEDS: Bisacodyl 10 MG Suppository RC (10:25)
[2025-03-23] MEDS: 0.9% Normal Saline (1000mL) 1,000 ML 100 ML IV ×2 (12:12→22:34)
[2025-03-23 13:17] LABS: Vancomycin, Trough Level 15.4 ug/mL (5.0-15.0)
[2025-03-23 14:16] VITALS: BP 153/101; PULSE 69; RESP 18; TEMP 37; O2SAT 93
[2025-03-23 17:44] VITALS: BP 170/102; PULSE 65
[2025-03-23] MEDS: Losartan Potassium 100 MG Tablet PO (18:19)
[2025-03-23 20:09] VITALS: BP 170/104; PULSE 68; RESP 18; TEMP 36.4; O2SAT 94
[2025-03-23] MEDS: hydrALAZINE 20 MG/ML Vial 10 MG IV (20:09)
[2025-03-24] MEDS: HYDROmorphone 1 MG/ML Syringe IV ×2 (00:13→03:35)
--- NOTE | 2025-03-24 00:14 | NURSING ---
Pt c/o abd pain. Pt refuses toradol. Pt only wants dilaudid. Instructed pt we did to try different meds. Pt still refuses to try it.
[2025-03-24 03:44] VITALS: BP 146/95; PULSE 72; RESP 17; TEMP 36.6; O2SAT 99
[2025-03-24] MEDS: Piperacil/Tazobactam 3.375 GM in 0.9% Normal Saline (50mL MB+) 50 ML IV ×3 (05:55→22:04)
[2025-03-24 05:59] LABS: Absolute Neutrophil Count 11.5 X10^3/uL (2.0-7.7); Basophil# 0.02 X10^3/uL; Basophil% 0.1 % (0-1); Eosinophil# 0.06 X10^3/uL; Eosinophils% 0.4 % (0-5); Hematocrit 43.3 % (40-54); Hemoglobin 14.8 g/dL (13.0-16.5); Lymphocyte % 7.6 % (19-41); Mean Corp Hgb Conc 34.2 g/dL (32-36); Mean Corpuscular Hgb 31.8 pg (27.0-32.0); Mean Corpuscular Volume 93.1 fL (80-94); Mean Platelet Vol. 10.3 fl (6.2-12.0); Monocyte# 1.77 X10^3/uL; Monocyte% 12.2 % (0-10); NRBC Flagged by Analyzer 0 % (0-5); Neutrophil # 11.46 X10^3/uL (2.7-7.7); Neutrophil % 79.2 % (47-70); POSITIVE DIFFERENTIAL YES; Platelet Count 311 K/mm3 (150-450); RBC Distribution Width CV 13.7 % (11.6-14.6); RBC Distribution Width SD 46.7 fl (35.1-43.9); Red Blood Count 4.65 M/mm3 (4.6-6.2); White Blood Count 14.5 K/mm3 (4.4-11.0)
--- NOTE | 2025-03-24 05:59 | NURSING ---
Pt requesting more pain Dilaudid. Before nurse left the room pt started to snore. informed pt that taking to much Dilaudid will lead to constipation. Pt said there is worse things.
[2025-03-24 06:00] LABS: Differential Indicated SCAN CRITERIA MET
[2025-03-24 06:52] LABS: Anion Gap 9 (5-15); BUN 13 mg/dL (4-19); BUN/Creat Ratio 18.7 RATIO (10-20); Carbon Dioxide 21.4 mmol/L (21.0-32.0); Chloride 104 mmol/L (98-108); Creatinine, Serum 0.68 mg/dL (0.70-1.20); EST Glomerular Filtration Rate 107 (>60); Estimated Creatinine Clearance 154.23 ml/min (50-250); Glucose 87 mg/dL (70-99); Potassium 3.7 mmol/L (3.3-5.1); Sodium Level 134 mmol/L (133-145)
[2025-03-24 06:56] LABS: Differential Comment SCANNED; Platelet Estimate ADEQUATE (ADEQ); Red Cell Morphology NORM C+C NORMAL (NORM C&C)
[2025-03-24 07:36] VITALS: BP 154/95; PULSE 74; RESP 18; TEMP 36.5; O2SAT 95
[2025-03-24] MEDS: Acetaminophen 325 MG Tablet 650 MG PO ×3 (07:44→22:04)
[2025-03-24] MEDS: oxyCODONE 5 MG Tablet PO ×3 (07:45→22:04)
[2025-03-24] MEDS: 0.9% Normal Saline (1000mL) 1,000 ML 100 ML IV (09:00)
[2025-03-24] MEDS: Losartan Potassium 100 MG Tablet PO (09:03)
[2025-03-24] MEDS: Pantoprazole Sodium 40 MG in 0.9% Normal Saline (100mL MB+) 100 ML 330 MG IV (09:03)
[2025-03-24] MEDS: Enoxaparin 40 MG/0.4 ML Syringe SC (09:03)
[2025-03-24] MEDS: Bisacodyl 5 MG Tablet PO (10:33)
[2025-03-24] MEDS: Polyethylene Glycol 3350 17 GM PACKET PO (10:34)
--- NOTE | 2025-03-24 10:45 | PCM.PROGNOTE ---
Subjective Subjective Patient seen and examined. He still complaining of epigastric pain. According to his nurse patient was asking for pain meds frequently overnight. Denies any nausea or vomiting and has been able to tolerate full liquid diet. Review of systems otherwise negative. WBC is down to 14.5. Objective Data Objective Data Vital Signs: Vital Signs Temp Pulse Resp BP Pulse Ox O2 Del Method 97.7 F L 74 18 154/95 H 95 Room Air 03/24/25 07:36 03/24/25 07:36 03/24/25 07:36 03/24/25 07:36 03/24/25 07:36 03/24/25 09:06 Oxygen Delivery Method Room Air Weight: 256 lb Body Mass Index (BMI) 33.9 Intake & Output: Intake and Output for Last 24 Hours 03/22/25 03/23/25 03/24/25 23:59 23:59 23:59 Intake Total 6120 / 6220 3017.25 / 3017.25 1675 / 1675 Balance 6120 / 6220 3017.25 / 3017.25 1675 / 1675 Lab / Micro Data 03/24/25 05:25 03/24/25 05:25 Labs: Laboratory Results - last 24 hr 03/23/25 12:30: Vancomycin Trough 15.4 H 03/24/25 05:25: WBC 14.5 H, RBC 4.65, Hgb 14.8, Hct 43.3, MCV 93.1, MCH 31.8, MCHC 34.2, RDW Std Deviation 46.7 H, RDW Coeff of Marty 13.7, Plt Count 311, MPV 10.3, Immature Gran % (Auto) 0.500, Neut % (Auto) 79.2 H, Lymph % (Auto) 7.6 L, [place] % (Auto) 12.2 H, Eos % (Auto) 0.4, Baso % (Auto) 0.1, Absolute Neuts (auto) 11.5 H, Absolute Lymphs (auto) 1.10, Nucleated RBC % 0, Differential Comment SCANNED, Platelet Estimate ADEQUATE, RBC Morphology NORM C+C, Sodium 134, Potassium 3.7, Chloride 104, Carbon Dioxide 21.4, Anion Gap 9, BUN 13, Creatinine 0.68 L, Estim Creat Clear Calc 154.23, Est GFR (MDRD) Non-Af 107, BUN/Creatinine Ratio 18.7, Glucose 87, Calcium 8.0 Micro: Microbiology 03/21/25 12:45 Blood Culture (Wb) - Right Hand Blood Culture - Preliminary No growth in 48 hours. 03/21/25 12:50 Blood Culture (Wb) - Left Hand Blood Culture - Preliminary No growth in 48 hours. 03/21/25 12:35 Mucosa - Throat Throat Culture - Final Normal throat yajaira isolated. No beta-hemolytic streptococcus isolated. Rhythm Strip Rhythm Strip: Sinus Rhythm Rate: 95 Ectopy: None Physical Exam Const alert, oriented x3 and no apparent distress Constitutional Narrative: abdominal pain has improved. HEENT normocephalic, head/scalp atraumatic, moist oral mucous membranes, oropharynx normal and gingiva normal Eyes PERRL and EOMs intact bilaterally Neck no lymphadenopathy and supple Lymph Lymphatic: no lymphadenopathy noted and no lymphedema noted Resp Resp Narrative: diminished breath sounds bibasally, no wheezes or crackles. on room air. Cardio regular rate, regular rhythm, S1 normal heart sound, S2 normal heart sound and no murmurs GI normal to inspection, nondistended, normoactive bowel sounds, soft to palpation and non-distended GI Narrative: epigastric tenderness has resolved. Extremity normal capillary refill, no clubbing, cyanosis or edema and no calf tenderness General Extremity: no tenderness to palpation of joints or extremities Skin General Skin Exam: no breakdown Neuro CN's II-XII intact bilaterally, no focal motor deficits and no sensory deficits noted Motor Exam: strength 5/5 throughout and general weakness Psych thought process normal and cooperative Appearance: appropriate Assessment & Plan Assessment/Plan (1) Acute pancreatitis: (2) Uvulitis: PLAN: Plan #Acute pancreatitis Admitted with a complaint of epigastric pain. CT of the abdomen and pelvis done did not show any evidence of pancreatitis. Lipase patient has thousand 200. Epigastric pain has improved today. Triglycerides were not elevated and gallbladder is surgically absent. MRCP did show mild pancreatitis with inflammation and fat stranding around the pancreas. abdominal tenderness has resolved, though patient did ask for pain meds all through the night he has no tenderness with palpation. tolerated clear liquid diet, will advance to a soft diet today. #Acute uvulitis and tonsilitis the throat swelling and pain have improved markedly and largely resolved he has remained on room air. stat CT of the head and neck also showed inflammatory process of the uvula and Waldeyer's ring as well as several small bilateral lymph nodes subjacent to the sternocleidomastoid muscles throat culture and blood cultures are negative IV vancomycin dc'd yesterday dC IV zosyn today and switch to PO augmentin x 5 day course #SIRS criteria wbc down to 14.5 today after solumedrol was dc'd/ blood and throat cultures negative. IV vancomycin dc'd yesterday, will dc zosyn today. Place on PO augmentin. #Hyperlipidemia: on statin #Remote history of DVT: stable. Not on anticoagulation. #Hypertension: losartan resumed. IV hydralazine prn #History of lyme disease and babesiosis Patient's states he was previously treated with oral antibiotics for the Lyme disease. He was also subsequently started on primaquine for the babesiosis. hold primaquine for now DVT prophylaxis: lovenox Code status: full code Disposition: DC tomorrow. Charges/Coding Visit Charges Inpatient E&M: 15009 Subs Hosp L2
[2025-03-24 11:20] VITALS: BP 142/81; PULSE 67; RESP 18; TEMP 36.6; O2SAT 97
[2025-03-24] MEDS: 0.9% Saline Lock 10 ML Syringe IV ×2 (13:47→22:04)
[2025-03-24 15:26] VITALS: BP 143/90; PULSE 65; RESP 18; TEMP 36.7; O2SAT 95
[2025-03-24 19:59] VITALS: BP 160/86; PULSE 65; RESP 16; TEMP 36.7; O2SAT 95
[2025-03-25 02:40] VITALS: BP 142/96; PULSE 77; RESP 15; TEMP 36.8; O2SAT 94
[2025-03-25] MEDS: Piperacil/Tazobactam 3.375 GM in 0.9% Normal Saline (50mL MB+) 50 ML IV (05:53)
[2025-03-25 06:44] LABS: Absolute Neutrophil Count 8.3 X10^3/uL (2.0-7.7); Basophil# 0.02 X10^3/uL; Basophil% 0.2 % (0-1); Eosinophil# 0.22 X10^3/uL; Hematocrit 45.7 % (40-54); Hemoglobin 15.6 g/dL (13.0-16.5); Mean Corp Hgb Conc 34.1 g/dL (32-36); Mean Corpuscular Hgb 31.6 pg (27.0-32.0); Mean Corpuscular Volume 92.5 fL (80-94); Mean Platelet Vol. 10.5 fl (6.2-12.0); Monocyte# 1.31 X10^3/uL; Monocyte% 11.9 % (0-10); NRBC Flagged by Analyzer 0 % (0-5); Neutrophil # 8.32 X10^3/uL (2.7-7.7); Neutrophil % 75.3 % (47-70); Platelet Count 303 K/mm3 (150-450); RBC Distribution Width CV 13.3 % (11.6-14.6); RBC Distribution Width SD 45.1 fl (35.1-43.9); Red Blood Count 4.94 M/mm3 (4.6-6.2)
[2025-03-25 07:06] LABS: Anion Gap 11 (5-15); BUN 11 mg/dL (4-19); BUN/Creat Ratio 14.4 RATIO (10-20); Calcium,Total 8.1 mg/dL (7.6-11.0); Carbon Dioxide 21.8 mmol/L (21.0-32.0); Chloride 102 mmol/L (98-108); Creatinine, Serum 0.73 mg/dL (0.70-1.20); EST Glomerular Filtration Rate 104 (>60); Estimated Creatinine Clearance 143.67 ml/min (50-250); Glucose 87 mg/dL (70-99); Potassium 3.7 mmol/L (3.3-5.1); Sodium Level 134 mmol/L (133-145)
[2025-03-25 08:05] VITALS: BP 148/100; PULSE 68; RESP 16; TEMP 36.8; O2SAT 95
[2025-03-25] MEDS: Enoxaparin 40 MG/0.4 ML Syringe SC (08:08)
[2025-03-25] MEDS: Losartan Potassium 100 MG Tablet PO (08:08)
[2025-03-25] MEDS: 0.9% Saline Lock 10 ML Syringe IV (08:08)
[2025-03-25] MEDS: Ondansetron 4 MG/2 ML Vial IV (08:08)
--- NOTE | 2025-03-25 11:53 | DCINST_ITS ---
Discharge Instructions Diet Discharge Diet: Low fat / Low cholesterol DC O2, CPAP, BIPAP needs Home O2 Discharge instructions: No Dressing / Incision Discharge Activity: Return to Normal Activity Weight Bearing Status: Weight bearing as tolerated Dressing / Incision Call your doctor if you observe: Fever of 101 or Higher, Shortness of breath, Dizziness, Swelling in the ankles and Chest pain Follow Up Care Test Results: Test results from this visit will be discussed in further detail at your follow- up appointment, if applicable. Discharge Plan Admission Admit Date/Time: 03/20/25 13:16 Primary Reason for Your Visit: acute pancreatitis, tonsilitis Attending Provider: Kalie Quiñonez Primary Care Provider: Jose Garza Consulting Providers: Jim Cast Instructions Patient Instructions: Pancreatitis Acute Dc Discharge Orders/Prescriptions Prescriptions: New oxycodone 5 mg Tablet 5 mg PO Q6H PRN PRN (Reason: Pain Score 1-10) 3 Days Qty: 12 0RF amoxicillin 500 mg tablet 500 mg PO Q8H Qty: 15 0RF Continued cholecalciferol (vitamin D3) 125 mcg (5,000 unit) capsule 125 mcg PO DAILY losartan 100 mg tablet 100 mg PO DAILY coenzyme Q10 30 mg capsule 30 mg PO DAILY fluconazole 200 mg tablet 400 mg PO DAILY primaquine 26.3 mg (15 mg base) tablet 2 tab PO DAILY Patient Comments: PT TAKES AT BEDTIME testosterone cypionate 200 mg/mL oil 200 mg IM QWEEK Patient Comments: PT DOES ON WEDNESDAYS DIM-plus 50-50 mg capsule 1 cap PO DAILY methocarbamol 500 mg tablet 500 mg PO DAILY Patient Comments: PT ONLY HAS TAKEN ONCE, TOOK 2 ON 03/19/25. Referrals / Follow Up: Joes Garza DO [Primary Care Provider] - Within 1 Week Jemal Tolentino MD [Med Staff - Active Staff] - Within 2 Weeks (see to establish care about bilateral jaw swelling) Disposition Disposition (needs filled in before D/C Order can be placed): Home, Self Care
--- NOTE | 2025-03-25 11:53 | PCM.DC.SUM ---
Providers Date of Admission: 03/20/25 Date of Discharge: 03/25/25 Primary Care Physician: Dr. Jose Garza DO Reason For Visit: PANCREATITIS Diagnosis Discharge Diagnosis (1) Acute pancreatitis: Status: Acute Code(s): K85.90 - Acute pancreatitis without necrosis or infection, unspecified (2) Uvulitis: Status: Acute Code(s): K12.2 - Cellulitis and abscess of mouth Plan #Acute pancreatitis Admitted with a complaint of epigastric pain. CT of the abdomen and pelvis done did not show any evidence of pancreatitis. Lipase patient has thousand 200. Epigastric pain has improved today. Triglycerides were not elevated and gallbladder is surgically absent. MRCP did show mild pancreatitis with inflammation and fat stranding around the pancreas. abdominal tenderness has resolved, though patient did ask for pain meds all through the night he has no tenderness with palpation. tolerated clear liquid diet, will advance to a soft diet today. #Acute uvulitis and tonsilitis the throat swelling and pain have improved markedly and largely resolved he has remained on room air. stat CT of the head and neck also showed inflammatory process of the uvula and Waldeyer's ring as well as several small bilateral lymph nodes subjacent to the sternocleidomastoid muscles throat culture and blood cultures are negative IV vancomycin dc'd yesterday dC IV zosyn today and switch to PO augmentin x 5 day course #SIRS criteria wbc down to 14.5 today after solumedrol was dc'd/ blood and throat cultures negative. IV vancomycin dc'd yesterday, will dc zosyn today. Place on PO augmentin. #Hyperlipidemia: on statin #Remote history of DVT: stable. Not on anticoagulation. #Hypertension: losartan resumed. IV hydralazine prn #History of lyme disease and babesiosis Patient's states he was previously treated with oral antibiotics for the Lyme disease. He was also subsequently started on primaquine for the babesiosis. hold primaquine for now DVT prophylaxis: lovenox Code status: full code Disposition: DC tomorrow. Medications at Discharge Home Medications cholecalciferol (vitamin D3) 125 mcg (5,000 unit) capsule 125 mcg PO DAILY 10/04/23 coenzyme Q10 30 mg capsule 30 mg PO DAILY 10/04/23 losartan 100 mg tablet 100 mg PO DAILY 10/04/23 diindolylmethane 50 mg-herbal drugs 50 mg capsule (DIM-plus) 1 cap PO DAILY 03/20/25 fluconazole 200 mg tablet 400 mg PO DAILY 03/20/25 methocarbamol 500 mg tablet 500 mg PO DAILY 03/20/25 primaquine 26.3 mg (15 mg base) tablet 2 tab PO DAILY 03/20/25 testosterone cypionate 200 mg/mL intramuscular oil 200 mg IM QWEEK 03/20/25 amoxicillin 500 mg tablet 500 mg PO Q8H #15 tabs 03/25/25 oxycodone 5 mg tablet 5 mg PO Q6H PRN PRN Pain Score 1-10 3 days #12 tabs 03/25/25 Hospital Course Operations None Procedures None Summary of Care Provided Minutes Spent on Discharge: 45 Hospital Course: Patient is a 59-year-old male with past medical history as outlined was admitted through the ED on 03/20/2025 with complaint of abdominal pain which is mainly in the epigastric region which started 2-3 days prior to admission. It radiates to his back and waxing and waned in intensity. He admitted to some nausea and vomiting. He had eaten a cheese pizza the day before his symptoms started. CT of the abdomen and pelvis done on admission showed absence of a gallbladder and fatty infiltration of the liver but no evidence of acute pancreatitis. His lipase was elevated at 429. Patient had apparently also been on Diflucan since September 2024 after he tested positive for antibiotics to be just uses and Lyme's disease. He had also been taking some supplements and was on primaquine for babesiosis. He was admitted to be managed for acute pancreatitis. Abdominal pain did worsen and his lipase trended up to 1200. MRCP of the abdomen done did show evidence of mild pancreatitis. Hospital course was complicated by swelling of the patient's uvula and tonsils and so he was treated for acute uvulitis and tonsillitis and started on IV Zosyn and vancomycin. He was transferred to the ICU for at least 1 night to monitor his airway. However the swelling also improved after he was started on steroids also. He was transferred out of the ICU to the regular floor. Abdominal pain resolved and he was started on clear liquids diet which he tolerated. He was advanced to a full liquid then a soft diet and regular diet all of which he tolerated. Patient remained stable and was discharged home on 03/25/2025. He was discharged on p.o. oxycodone 5 mg every 6 hours as needed for total of 12 tablets for 3 days. OARRS: Checked and no red flags were seen. Was also discharged on p.o. amoxicillin 500 mg 3 times daily for total of 5 days to finish treatment for the tonsillitis and uvulitis. He is to follow-up with his primary care doctor within 1 to 2 weeks. Of note triglycerides were also normal. Etiology of the pancreatitis was therefore not clear as patient did not have a history of drinking alcohol and gallbladder was surgically absent and there was no evidence of choledocholithiasis either and triglycerides were not elevated. Patient was seen and examined on the day of discharge. His was by his bedside and he had no active complaints. REview of systems otherwise negative. Labs and vitals reviewed. Home meds reviewed and reconciled. Physical Exam Const alert, oriented x3 and no apparent distress General Appearance: cooperative and comfortable Orientation / Consciousness: awake Exam Limitations: no limitations HEENT normocephalic, head/scalp atraumatic, hearing grossly normal bilaterally, moist oral mucous membranes, oropharynx normal and gingiva normal Mouth: oral and palatal mucosa normal Eyes PERRL and EOMs intact bilaterally Neck no lymphadenopathy and supple Lymph Lymphatic: no lymphadenopathy noted and no lymphedema noted Resp Resp Narrative: diminished breath sounds bibasally, no wheezes or crackles. on room air. Cardio regular rate, regular rhythm, S1 normal heart sound, S2 normal heart sound and no murmurs GI normal to inspection, nondistended, normoactive bowel sounds, soft to palpation and non-distended Extremity normal to inspection, full ROM, normal capillary refill, no clubbing, cyanosis or edema and no calf tenderness General Extremity: no tenderness to palpation of joints or extremities Skin no rashes or lesions noted General Skin Exam: no breakdown Neuro oriented x3, moves all extremities, no focal motor deficits and no sensory deficits noted Sensorium / Orientation: awake and alert Motor Exam: strength 5/5 throughout and general weakness Psych thought process normal and cooperative Appearance: appropriate Weight / BMI Weight Weight: 256 lb 0.012 oz Body Mass Index (BMI) 33.9 ABG / Lab / Microbiology Data 03/25/25 05:35 03/25/25 05:35 Laboratory: Laboratory Results - last 24 hr 03/25/25 05:35: WBC 11.0, RBC 4.94, Hgb 15.6, Hct 45.7, MCV 92.5, MCH 31.6, MCHC 34.1, RDW Std Deviation 45.1 H, RDW Coeff of Marty 13.3, Plt Count 303, MPV 10.5, Immature Gran % (Auto) 0.600, Neut % (Auto) 75.3 H, Lymph % (Auto) 10.0 L, [place] % (Auto) 11.9 H, Eos % (Auto) 2.0, Baso % (Auto) 0.2, Absolute Neuts (auto) 8.3 H, Absolute Lymphs (auto) 1.10, Nucleated RBC % 0, Sodium 134, Potassium 3.7, Chloride 102, Carbon Dioxide 21.8, Anion Gap 11, BUN 11, Creatinine 0.73, Estim Creat Clear Calc 143.67, Est GFR (MDRD) Non-Af 104, BUN/Creatinine Ratio 14.4, Glucose 87, Calcium 8.1 Microbiology: Microbiology 03/21/25 12:45 Blood Culture (Wb) - Right Hand Blood Culture - Preliminary No growth in 48 hours. 03/21/25 12:50 Blood Culture (Wb) - Left Hand Blood Culture - Preliminary No growth in 48 hours. 03/21/25 12:35 Mucosa - Throat Throat Culture - Final Normal throat yajaira isolated. No beta-hemolytic streptococcus isolated. D/C Instructions Discharge Diet: Low fat / Low cholesterol Discharge Activity: Return to Normal Activity Weight Bearing Status: Weight bearing as tolerated Call your doctor if you observe: Fever of 101 or Higher, Shortness of breath, Dizziness, Swelling in the ankles and Chest pain DC O2, CPAP, BIPAP Needs Home O2 Discharge instructions: No DC home with Oxygen: No Meaningful Use Info Meaningful Use Meaningful Use Diagnoses (Choose all that apply): None applicable Ischemic Stroke Statin Dosing Therapy Reference: STATIN DOSE THERAPY REFERENCE: * Patients > 75 years receive moderate or high dose statin therapy. * Patients 75 years or YOUNGER should receive HIGH intensity statin dose unless contraindicated. You will be required to document reason for non-treatment if statin daily dose does not meet guidelines. HIGH DOSE STATIN THERAPY DAILY Atorvastatin > than or = to 40 mg Rosuvastatin > than or = to 20 mg Amlodipine + Atorvastatin > than or = to 2.5/40 mg Ezetimibe + Simvastatin 10/80 mg Simvastatin 80mg Discharge Plan Admission Admit Date/Time: 03/20/25 13:16 Primary Reason for Your Visit: acute pancreatitis, tonsilitis Attending Provider: Kalie Quiñonez Primary Care Provider: Jose Garza Consulting Providers: Jim Cast Instructions Patient Instructions: Pancreatitis Acute Dc Discharge Orders/Prescriptions Prescriptions: New oxycodone 5 mg Tablet 5 mg PO Q6H PRN PRN (Reason: Pain Score 1-10) 3 Days Qty: 12 0RF amoxicillin 500 mg tablet 500 mg PO Q8H Qty: 15 0RF Continued cholecalciferol (vitamin D3) 125 mcg (5,000 unit) capsule 125 mcg PO DAILY losartan 100 mg tablet 100 mg PO DAILY coenzyme Q10 30 mg capsule 30 mg PO DAILY fluconazole 200 mg tablet 400 mg PO DAILY primaquine 26.3 mg (15 mg base) tablet 2 tab PO DAILY Patient Comments: PT TAKES AT BEDTIME testosterone cypionate 200 mg/mL oil 200 mg IM QWEEK Patient Comments: PT DOES ON WEDNESDAYS DIM-plus 50-50 mg capsule 1 cap PO DAILY methocarbamol 500 mg tablet 500 mg PO DAILY Patient Comments: PT ONLY HAS TAKEN ONCE, TOOK 2 ON 03/19/25. Referrals / Follow Up: Jose Garza DO [Primary Care Provider] - Within 1 Week Jemal Tolentino MD [Med Staff - Active Staff] - Within 2 Weeks (see to establish care about bilateral jaw swelling) Disposition Disposition (needs filled in before D/C Order can be placed): Home, Self Care Charges/Coding Visit Charges Inpatient E&M: 81624 Disch Hosp >30min
[2025-03-25 12:30] VITALS: BP 149/98; PULSE 60; RESP 16; TEMP 36.6; O2SAT 97
== END 2025-03-25 12:49 | disposition home or self-care (01) | DRG 282 ==
LOC: ED 12:48 → MS3 14:18 → ICU 03-21 14:08 → MS3 03-22 14:38
PROVIDERS: Admitting Provider Family Medicine; Emergency Provider Emergency Medicine; PCP Family Medicine; Referring Provider Family Medicine; Visit Provider Student in an Organized Health Care Education/Training Program
DX: K85.90 Acute pancreatitis without necrosis or infection, unspecified (principal); A69.20 Lyme disease, unspecified; K76.0 Fatty (change of) liver, not elsewhere classified; I10 Essential (primary) hypertension; R65.10 Systemic inflammatory response syndrome (SIRS) of non-infectious origin without acute organ dysfunction; E78.5 Hyperlipidemia, unspecified; J03.90 Acute tonsillitis, unspecified; K12.2 Cellulitis and abscess of mouth; Z86.718 Personal history of other venous thrombosis and embolism; Z82.49 Family history of ischemic heart disease and other diseases of the circulatory system; Z90.49 Acquired absence of other specified parts of digestive tract
CPT/HCPCS: 36415; 70491; 72132; 74177; 74183; 80048; 80053; 80061; 80202; 81001; 83605; 83690; 85025; 87040; 87070; 93005; 99284; A9575; Q9967; A4216; J2405

== ENCOUNTER 2025-04-24 11:31 | Observation (INO) | payer MEDICAID, SELFPAY ==
[2025-04-24] VITALS (8 sets, daily range): BP systolic 111–162; BP diastolic 73–99; PULSE 81–115; RESP 16–20; TEMP 36.4–38; O2SAT 95–99; BMI 31.8; BMI 31.4
--- NOTE | 2025-04-24 11:50 | RAD_ITS ---
PROCEDURE: CHEST 1 VIEW (PORTABLE) 04/24/2025 REASON FOR EXAM: FEVER TECHNIQUE: Frontal view of the chest. COMPARISON: None provided. RAD/Chest 1 View (Portable) IMPRESSION: Lungs appear clear. No pleural effusion or pneumothorax is noted. The cardiomediastinal silhouette is within the normal range. No acute osseous process is seen. No evidence of acute cardiopulmonary disease. Reading Location: [place] [id number]
--- NOTE | 2025-04-24 11:53 | EX.ED.DYSGE1 ---
HPI History of Present Illness Chief Complaint: Flank Pain Informant: patient and spouse/S.O. Narrative Narrative: 59-year-old male started having dysuria yesterday followed by gradual onset of pain in the left flank that is worsened today and he has cold chills and bodyaches like I have the flu. Has had no gross hematuria, but states for the past 3 or 4 weeks his urine has been orange. This has been since he left the hospital, he was here for pancreatitis that was diagnosed by MRI and blood work, for reasons that are unclear; he has had a prior cholecystectomy and he does not drink alcohol. No travel out of the country recently. Today he is having trouble urinating, stating he feels like he needs to go but it is just dribbling out. He denies any abdominal pain mostly in his left low back and comes in waves colicky. No cough, dyspnea, headache, focal neurologic symptoms. PFSH PFS Medical History Uvulitis Hypertension History of dislocation of knee HLD (hyperlipidemia) DVT (deep venous thrombosis) Home Medications ?Medication ?Instructions ?Recorded ?Last Taken ?Type losartan 100 mg tablet 100 mg PO DAILY 10/04/23 04/23/25 History methenamine-sodium salicylate 162 2 tab PO DAILY PRN URINARY PAIN 04/24/25 04/24/25 History mg-162.5 mg tablet (Cystex Dual Action) Allergy/AdvReac Type Severity Reaction Status Date / Time sulfamethoxazole (From Allergy Other Verified 04/24/25 11:32 Bactrim) trimethoprim (From Bactrim) Allergy Other Verified 04/24/25 11:32 adhesive tape AdvReac Rash Verified 04/24/25 11:32 Family History Other Asthma Breast cancer CAD (coronary artery disease) CVA (cerebral vascular accident) Heart disease Hypertension Myocardial infarction Surgical History Hx of cholecystectomy Social History Smoking Status: Never smoker ROS ROS ED Constitutional Constitutional ED: Reports body ache(s), chills and fever(s) Eyes Eyes: Denies change in vision or diplopia ENT ENT ED: Denies rhinorrhea or sore throat Cardiovascular Cardiovascular: Denies chest pain or palpitations Respiratory/Chest Respiratory/Chest: Denies cough or dyspnea Gastrointestinal Gastrointestinal: Denies abdominal pain, diarrhea, nausea or vomiting Genitourinary Genitourinary ED: Reports as per HPI, burning urination, difficulty urinating and dysuria; Denies hematuria Musculoskeletal Musculoskeletal: Reports back pain; Denies neck pain Integumentary Denies abscess or rash Neurologic Neurologic: Denies headache(s), paresthesias or weakness Psychiatric Psychiatric: Denies anxiety or suicidal thoughts EXAM Physical Exam Const Vital Signs: 04/24/25 11:31 04/24/25 11:31 04/24/25 11:50 Temperature 99.1 F Temperature Source Oral Pulse Rate 111 H 115 H Respiratory Rate 20 H Blood Pressure 111/99 H Blood Pressure Mean 103 Pulse Ox 98 Oxygen Delivery Method Room Air Room Air 04/24/25 13:31 04/24/25 13:35 Temperature 98.4 F Temperature Source Oral Pulse Rate 86 Respiratory Rate 16 Blood Pressure 158/73 H Blood Pressure Mean 101 Pulse Ox 97 Oxygen Delivery Method Room Air Positive well nourished and well developed General Appearance ED: well developed and NAD HEENT Reports moist mucous membranes normocephalic and atraumatic Eyes PERRL and EOMs intact bilaterally Neck full ROM and supple Resp normal respiratory effort and clear to auscultation bilaterally Cardio regular rate, regular rhythm and no murmurs Rate: tachycardic GI non-tender and non-distended Auscultation: normoactive bowel sounds Palpation: soft Back/Spine no CVA tenderness General Back: other FROM Extremity normal to inspection General Extremety ED: Negative for edema, pulses abnormal or tenderness General Extremity: Negative for edema or pulses abnormal Neuro oriented x3, CN's II-XII intact bilaterally and no sensory deficits noted Sensorium / Orientation: awake and alert Motor Exam: strength 5/5 throughout Skin no rashes or lesions noted and no wounds MDM MDM MDM Narrative Medical decision making narrative: Given the patient's recent history and family stating that he was diagnosed with some type of infection they could not find the source of, and the fact that the patient has had fevers and is tachycardic here, he was at 100.1 at home yesterday, I obtained a septic workup including a CT of abdomen/pelvis considering possibility of stone versus pyelonephritis versus both, and treated him with IV fluids and morphine. He is feeling better after the IV fluids and medications and his tachycardia resolved, however the urinalysis is negative for acute infection on my interpretation, negative for blood, negative for bilirubin, it does have an orange tinge to it, for unknown reasons. He has a significant leukocytosis at 19, with a leftward shift but no bands. His renal function is normal, liver enzymes are for the most part normal except for an AST of 41 which is just barely elevated, his lactic acid is within normal limits arguing against acute sepsis, but his CT of the abdomen/pelvis on my interpretation shows no obstructive uropathy or hydronephrosis. Radiology in agreement, basically negative for any acute. Etiology of his symptoms is unclear, and with everything he went through a month or so ago and the degree of leukocytosis, I think he needs further evaluation. I added on a lipase which came back normal, and on reevaluation the patient is coughing a lot. I did a two-view chest x-ray prior to this, it is normal and negative for pneumonia on my interpretation radiology was in agreement, some sending him for a CT of the chest with IV contrast and a CTA of the abdomen/pelvis to rule out dissection and renal infarct/renal artery thrombosis. I reviewed the CT studies. The CT of the chest with IV contrast does not show overt pneumonia, there are some atelectasis at the left base, unclear if this could be early pneumonia or if it is incidental due to pain and hypoventilation. The CTA of the abdomen/pelvis shows no acute vascular thrombosis/abnormality, but may show colitis of the right hemicolon. He is not having right-sided pain. Unclear if this is the source of his leukocytosis and symptoms. I think providing empiric antibiotics and admitting him is most appropriate. Discussed with hospitalist, also added ESR, CRP, procalcitonin at their request. History & Record Review Additional record(s) reviewed:: Prior inpatient record Lab Data Attestation: I reviewed the patient's lab results. Labs: Laboratory Results - last 24 hr 04/24/25 04/24/25 12:00 12:35 WBC 19.0 H RBC 4.97 Hgb 15.8 Hct 46.8 MCV 94.2 H MCH 31.8 MCHC 33.8 RDW Std Deviation 46.5 H RDW Coeff of Marty 13.5 Plt Count 209 MPV 10.2 Immature Gran % (Auto) 0.500 Neut % (Auto) 88.2 H Lymph % (Auto) 3.3 L [place] % (Auto) 7.7 Eos % (Auto) 0.1 Baso % (Auto) 0.2 Absolute Neuts (auto) 16.8 H Absolute Lymphs (auto) 0.62 L Nucleated RBC % 0 PT 13.6 INR 1.0 APTT 26.2 Sodium 132 L Potassium 3.9 Chloride 97 L Carbon Dioxide 25.4 Anion Gap 10 BUN 12 Creatinine 0.90 Estim Creat Clear Calc 109.98 Est GFR (MDRD) Non-Af 98 BUN/Creatinine Ratio 12.8 Glucose 140 H Lactic Acid 1.8 Calcium 8.5 Total Bilirubin 0.75 AST 41 H ALT 47 Alkaline Phosphatase 85 Total Protein 6.6 Albumin 3.9 Globulin 2.7 Albumin/Globulin Ratio 1.4 Lipase 22 Urine Color Yellow Urine Clarity Clear Urine pH 6.5 Ur Specific Hughes 1.015 Urine Protein 15 H Urine Glucose (UA) Normal Urine Ketones Negative Urine Occult Blood Negative Urine Nitrite Negative Urine Bilirubin Negative Urine Urobilinogen Normal Ur Leukocyte Esterase 25 H Urine RBC 0 SEEN Urine WBC 0-5 SEEN Ur Squamous Epith Cells 0 SEEN Urine Bacteria 0 SEEN Urine Mucus 0 SEEN Radiography Diagnostic Testing: Clinical Impression(s) from Imaging Studies Chest X-Ray 04/24/25 11:50 IMPRESSION: Lungs appear clear. No pleural effusion or pneumothorax is noted. The cardiomediastinal silhouette is within the normal range. No acute osseous process is seen. No evidence of acute cardiopulmonary disease. Reading Location: [id number] Abdomen/Pelvis CT 04/24/25 12:15 IMPRESSION: Fatty infiltration of the liver. Status post cholecystectomy. Left parapelvic renal cysts. No obstructive uropathy is seen. Reading Location: [id number] Abdomen/Pelvis CTA 04/24/25 14:04 IMPRESSION: Questionable colitis of the right hemicolon. No vascular abnormality is seen. Reading Location: [id number] Chest CT 04/24/25 14:04 IMPRESSION: Coronary artery calcification (CAC) is is present Mild degree of bibasilar atelectasis slightly worse at the left lung base. Reading Location: [id number] Rhythm Strip Rhythm Strip: Sinus Tach Rate: 110 Ectopy: None EKG Initial EKG: Attestation: I personally reviewed and interpreted this EKG as follows: Interpretation: Sinus Rhythm (87), No Acute Injury Pattern and RBBB Prior EKG tracings: available for review Prior: Unchanged Management Discussion w/another healthcare provider: Hospitalist Discharge Plan Triage Chief Complaint: Flank Pain Other Complaint: Complaint ED Provider: Gómez Torres Dx/Rx/DC Orders Clinical Impression: Acute left flank pain, Leukocytosis, Colitis, Acute cough Prescriptions: No Action losartan 100 mg tablet 100 mg PO DAILY Cystex Dual Action 162-162.5 mg tablet 2 tab PO DAILY PRN (Reason: URINARY PAIN) Primary Care Provider: Jose Garza Referrals: Jose Garza DO [Primary Care Provider] - Print Language: Nauruan Disposition Disposition: Acute Care Hospital [facility]
[2025-04-24] MEDS: 0.9% Normal Saline (1000mL) 1,000 ML 999 ML IV (12:04)
[2025-04-24 12:12] LABS: Absolute Lymphocyte Count 0.62 X10^3/uL (0.83-4.51); Absolute Neutrophil Count 16.8 X10^3/uL (2.0-7.7); Basophil# 0.04 X10^3/uL; Basophil% 0.2 % (0-1); Eosinophil# 0.02 X10^3/uL; Eosinophils% 0.1 % (0-5); Hematocrit 46.8 % (40-54); Hemoglobin 15.8 g/dL (13.0-16.5); Lymphocyte # 0.62 X10^3/ul (0.83-4.51); Lymphocyte % 3.3 % (19-41); Mean Corp Hgb Conc 33.8 g/dL (32-36); Mean Corpuscular Hgb 31.8 pg (27.0-32.0); Mean Corpuscular Volume 94.2 fL (80-94); Mean Platelet Vol. 10.2 fl (6.2-12.0); Monocyte# 1.46 X10^3/uL; Monocyte% 7.7 % (0-10); NRBC Flagged by Analyzer 0 % (0-5); Neutrophil # 16.76 X10^3/uL (2.7-7.7); Neutrophil % 88.2 % (47-70); Platelet Count 209 K/mm3 (150-450); RBC Distribution Width CV 13.5 % (11.6-14.6); RBC Distribution Width SD 46.5 fl (35.1-43.9); Red Blood Count 4.97 M/mm3 (4.6-6.2)
--- NOTE | 2025-04-24 12:15 | CT_ITS ---
PROCEDURE: ABDOMEN/PELVIS WITHOUT CONT 04/24/2025 REASON FOR EXAM: LEFT FLANK PAIN, TROUBLE URINATING TECHNIQUE: ABDOMEN/PELVIS WITHOUT CONT Noncontrast technique limits evaluation of the abdominal and pelvic viscera. Coronal and Sagittal reconstruction series were provided. One or more dose reduction techniques were used (e.g., Automated exposure control, adjustment of the mA and/or kV according to patient size, use of iterative reconstruction technique). RADIATION DOSE SUMMARY: CTDlvol: 16 mGy DLP: 1508.62 mGycm COMPARISON: Prior study dated March 20, 2025. FINDINGS: Lung bases: Mild dependent atelectasis. Coronary artery calcification. Liver: Diffuse fatty infiltration. Gallbladder: Surgically absent. Spleen: Normal size. Pancreas: Normal size. No surrounding inflammation. Adrenals: Unremarkable Kidneys: Stable left parapelvic cysts. Bladder: Unremarkable Bowel: Colonic diverticulosis without diverticulitis. Appendix: The appendix is not identified. There is no inflammatory process identified in the right lower quadrant to suggest appendicitis. Lymph nodes: Unremarkable. Vasculature: Mild diffuse atherosclerotic calcifications are noted. Peritoneum / Retroperitoneum: Unremarkable. Small right inguinal hernia containing fat. Bones: Degenerative changes of the spine. CT/Abdomen/Pelvis without Cont IMPRESSION: Fatty infiltration of the liver. Status post cholecystectomy. Left parapelvic renal cysts. No obstructive uropathy is seen. Reading Location: [id number]
[2025-04-24 12:23] LABS: Partial Thromboplast Time 26.2 Seconds (24.1-36.2); Prothrombin Time (Protime)PT. 13.6 SECONDS (11.7-14.9)
[2025-04-24 12:36] LABS: ALB/GLOB Ratio 1.4 RATIO (0.9-2.4); AST(SGOT) 41 U/L (<=37); Alanine Aminotransfer ALT/SGPT 47 U/L (<=46); Albumin, Serum 3.9 g/dL (3.4-4.8); Alkaline Phosphatase 85 U/L (40-129); Anion Gap 10 (5-15); BUN 12 mg/dL (4-19); BUN/Creat Ratio 12.8 RATIO (10-20); Calcium,Total 8.5 mg/dL (7.6-11.0); Carbon Dioxide 25.4 mmol/L (21.0-32.0); Chloride 97 mmol/L (98-108); EST Glomerular Filtration Rate 98 (>60); Estimated Creatinine Clearance 109.98 ml/min (50-250); Globulin 2.7 g/dL (2.2-4.2); Glucose 140 mg/dL (70-99); Potassium 3.9 mmol/L (3.3-5.1); Protein, Total 6.6 g/dL (5.9-8.4); Sodium Level 132 mmol/L (133-145); Total Bilirubin 0.75 mg/dL (0.00-1.30)
[2025-04-24 12:43] LABS: Bacteria 0 SEEN /hpf (None Seen); Mucous, Urine 0 SEEN /hpf (<or=2+); Red Blood Cells-Urine 0 SEEN /hpf (0-5); Squamous Epithelial Cells - UA 0 SEEN /hpf (0-5)
[2025-04-24 12:48] LABS: Color, Urine Yellow (Yellow); Glucose, Dipstick Normal (Normal); Ketone-Dipstick Negative (Negative); Leukocyte Esterase-Dipstick 25 /ul (Negative); Nitrite-Dipstick Negative (Negative); Occult Blood-Urine Negative /ul (Negative); Protein-Dipstick 15 mg/dl (Negative); Specific Gravity, Urine 1.015 (1.002-1.030); Urine Bilirubin Dipstick Negative (Negative); Urine Clarity Clear (Clear); Urine Urobilinogen Normal (Normal); Urine pH 6.5 (5.0 - 8.0)
[2025-04-24 12:50] LABS: Lactic Acid 1.8 mmol/L (0.0-2.0)
[2025-04-24 12:56] LABS: White Blood Cells 0-5 SEEN /hpf (0-5)
--- NOTE | 2025-04-24 14:04 | CT_ITS ---
PROCEDURE: CHEST WITH CONTRAST 04/24/2025 REASON FOR EXAM: COUGH, FEVER, NML CXR TECHNIQUE: CHEST WITH CONTRAST Coronal and Sagittal reconstruction series were provided. CONTRAST: Isovue 3 7 VOLUME: 100 mL One or more dose reduction techniques were used (e.g., Automated exposure control, adjustment of the mA and/or kV according to patient size, use of iterative reconstruction technique). RADIATION DOSE SUMMARY: CTDlvol: 105 mGy DLP: 2792.85 mGycm COMPARISON: Prior chest radiograph done earlier in the day. FINDINGS: Hardware: None Lymph nodes: Small lymph nodes are seen in both axillary regions. Heart and Vasculature: Coronary artery calcifications are noted. Lungs and Airways: Mild degree of atelectasis at the lung bases slightly more prominent on the left side. Pleura: No pleural effusion Upper Abdomen: Fatty infiltration of the liver Bones: Degenerative changes of the thoracic spine. CT/Chest WITH Contrast IMPRESSION: Coronary artery calcification (CAC) is is present Mild degree of bibasilar atelectasis slightly worse at the left lung base. Reading Location: [id number]
--- NOTE | 2025-04-24 14:04 | CT_ITS ---
PROCEDURE: CTA ABD/PELVIS W/WO CONTRAST 04/24/2025 REASON FOR EXAM: LEFT FLANK PAIN, NML NONCONTRAST CT TECHNIQUE: CTA ABD/PELVIS W/WO CONTRAST Multiplanar Sagittal and Coronal images were obtained. CONTRAST: Isovue 370 VOLUME: 100 mL One or more dose reduction techniques were used (e.g., Automated exposure control, adjustment of the mA and/or kV according to patient size, use of iterative reconstruction technique). RADIATION DOSE SUMMARY: CTDlvol: 14 mGy DLP: 2792.85 mGycm COMPARISON: Prior CT scan of the abdomen pelvis done earlier in the day. FINDINGS: Aorta: Unremarkable Iliac Arteries: Unremarkable Celiac: Unremarkable SMA: Unremarkable SONYA : Unremarkable Right Renal: Unremarkable Left Renal: Unremarkable Extravascular Findings: Fatty infiltration of the liver. Mild atrophy of the pancreas. Status post cholecystectomy. The spleen is unremarkable. Stable left parapelvic renal cysts. Findings suggestive of possible colitis of the right hemicolon. CT/CTA Abd/Pelvis W/WO Contrast IMPRESSION: Questionable colitis of the right hemicolon. No vascular abnormality is seen. Reading Location: [id number]
[2025-04-24 14:23] LABS: Lipase 22 U/L (13-75)
--- NOTE | 2025-04-24 15:54 | PCM.HP.STD ---
HPI - General General Date of Admission: 04/24/25 Date of Service: 04/24/25 Chief Complaint: Burning on urination HPI Narrative VANITA SOSA, is a 59-year-old male history of hypertension presented [facility] ED 04/24/2025 with dysuria and left flank pain as well as cold chills and bodyaches like he has the flu. No hematuria or reports his urine has appeared orange in nature. He feels like he needs to urinate but it is just dribbling out. Does have a little bit of abdominal pain but mostly on the left side and it comes in waves. Also of note he had been in the hospital for pancreatitis that was diagnosed by imaging and blood work and had inflammation of his uvula during that same admission. In the ED temperature 99.1, heart rate 111 with blood pressure 111/99, respiratory rate 20 and pulse ox 98% on room air. White blood cell count of 19, INR of 1.0 and CMP with slightly low sodium of 132, creatinine 0.90, slightly elevated glucose of 140 and AST of 41. Lactic acid 1.8 and UA not suggestive of UTI. Chest x-ray and CT of the abdomen without contrast with no acute process. Given patient's complaints chest CT and CT abdomen pelvis obtained. CT chest with no overt acute process however CT abdomen queried colitis of the right hemicolon but this was not consistent with the symptoms. did report that patient has been taking methenamine and there was concern that this may have been altering the UA causing false negative so patient given Rocephin and hospitalist contacted for admission for observation for antibiotics and fluids. Patient evaluated with at bedside, reportedly last year patient was having difficulty functioning and moving and went to an integrative medicine clinic and was diagnosed with 2 types of Lyme disease, babesiosis, Bartonella and was on multiple medications including primaquine, Diflucan, and was also prescribed rifampin there is unclear if he had taken this. He is no longer in any of these medications and reports that this did seem to help him and he had been doing better even after his recent hospitalization for pancreatitis until the past day when he began having burning on urination and feeling like he was dribbling. Also having left mid back pain where ribs meet spine that is coming and going, no diarrhea, no nausea or vomiting, does have a headache but has been coughing for the past 1 to 2 days and reports this has been causing his headache. No changes in vision, no shortness of breath or chest pain. No suprapubic pain. Denies fever at home. Did have elevated white blood cell count in the ED, several days ago had steroid injections in his knees but no systemic steroids noted. While patient denies fever at home he has had some chills and aches. also reports he has not seemed quite himself for the past couple of weeks [facility] Medical History Uvulitis Hypertension History of dislocation of knee HLD (hyperlipidemia) DVT (deep venous thrombosis) Home Medications ?Medication ?Instructions ?Recorded ?Last Taken ?Type losartan 100 mg tablet 100 mg PO DAILY 10/04/23 04/23/25 History methenamine-sodium salicylate 162 2 tab PO DAILY PRN URINARY PAIN 04/24/25 04/24/25 History mg-162.5 mg tablet (Cystex Dual Action) Allergy/AdvReac Type Severity Reaction Status Date / Time sulfamethoxazole (From Allergy Other Verified 04/24/25 11:32 Bactrim) trimethoprim (From Bactrim) Allergy Other Verified 04/24/25 11:32 adhesive tape AdvReac Rash Verified 04/24/25 11:32 Family History Other Asthma Breast cancer CAD (coronary artery disease) CVA (cerebral vascular accident) Heart disease Hypertension Myocardial infarction Surgical History Hx of cholecystectomy Social History Smoking Status: Never smoker ROS ROS Narrative General: Denies fever but has had some chills and aches HENT: Has a generalized headache worse with coughing, denies stuffy nose, denies sore throat EYES: Denies changes in vision Resp: Nonproductive cough, no shortness of breath Cardiac: Denies chest pain GI: Denies overt abdominal pain but does have what he describes as left flank pain but is more at the mid lower costochondral angles on back, denies changes in bowel, denies nausea/vomiting : Patient reports urgent urination, burning on urination and urinary hesitancy with ibbling Extremity: Sometimes get swelling in his legs MSK: Feels little bit generally weak Neuro: Denies any numbness/tingling Heme: Denies any bleeding or bruising Skin: Denies rashes Psychiatric: No complaints voiced Vital Signs Vital Signs Vital Signs: 04/24/25 11:31 04/24/25 11:31 04/24/25 11:50 Temperature 99.1 F Temperature Source Oral Pulse Rate 111 H 115 H Respiratory Rate 20 H Blood Pressure 111/99 H Blood Pressure Mean 103 Pulse Ox 98 Oxygen Delivery Method Room Air Room Air 04/24/25 13:31 04/24/25 13:35 Temperature 98.4 F Temperature Source Oral Pulse Rate 86 Respiratory Rate 16 Blood Pressure 158/73 H Blood Pressure Mean 101 Pulse Ox 97 Oxygen Delivery Method Room Air Weight Weight: 106.3 kg Body Mass Index (BMI) 31.8 Physical Exam Narrative General: Alert, oriented, no apparent distress HEENT: Atraumatic, normocephalic Eyes: Anicteric, normal conjunctiva, extraocular movements grossly intact Neck: Supple Respiratory: Clear to auscultation bilaterally, normal respiratory effort Cardiovascular: Regular rate and rhythm GI: Soft, nontender, nondistended, did not have tenderness palpation on flank palpation Extremities: No edema Musculoskeletal: Moving all extremities Neuro: No overt focal neurological deficits Skin: No rashes appreciated Psych: Cooperative Results Lab / Micro Data 04/24/25 12:00 04/24/25 12:00 Labs: Laboratory Results - last 24 hr 04/24/25 12:00: WBC 19.0 H, RBC 4.97, Hgb 15.8, Hct 46.8, MCV 94.2 H, MCH 31.8, MCHC 33.8, RDW Std Deviation 46.5 H, RDW Coeff of Marty 13.5, Plt Count 209, MPV 10.2, Immature Gran % (Auto) 0.500, Neut % (Auto) 88.2 H, Lymph % (Auto) 3.3 L, [place] % (Auto) 7.7, Eos % (Auto) 0.1, Baso % (Auto) 0.2, Absolute Neuts (auto) 16.8 H, Absolute Lymphs (auto) 0.62 L, Nucleated RBC % 0, PT 13.6, INR 1.0, APTT 26.2, Sodium 132 L, Potassium 3.9, Chloride 97 L, Carbon Dioxide 25.4, Anion Gap 10, BUN 12, Creatinine 0.90, Estim Creat Clear Calc 109.98, Est GFR (MDRD) Non-Af 98, BUN/Creatinine Ratio 12.8, Glucose 140 H, Lactic Acid 1.8, Calcium 8.5, Total Bilirubin 0.75, AST 41 H, ALT 47, Alkaline Phosphatase 85, Total Protein 6.6, Albumin 3.9, Globulin 2.7, Albumin/Globulin Ratio 1.4, Lipase 22 04/24/25 12:35: Urine Color Yellow, Urine Clarity Clear, Urine pH 6.5, Ur Specific [place] 1.015, Urine Protein 15 H, Urine Glucose (UA) Normal, Urine Ketones Negative, Urine Occult Blood Negative, Urine Nitrite Negative, Urine Bilirubin Negative, Urine Urobilinogen Normal, Ur Leukocyte Esterase 25 H, Urine RBC 0 SEEN, Urine WBC 0-5 SEEN, Ur Squamous Epith Cells 0 SEEN, Urine Bacteria 0 SEEN, Urine Mucus 0 SEEN Rhythm Strip Rhythm Strip: Sinus Tach Rate: 110 Ectopy: None Imaging Radiology Impression Chest X-Ray 04/24/25 11:50 IMPRESSION: Lungs appear clear. No pleural effusion or pneumothorax is noted. The cardiomediastinal silhouette is within the normal range. No acute osseous process is seen. No evidence of acute cardiopulmonary disease. Reading Location: [facility]--1 Abdomen/Pelvis CT 04/24/25 12:15 IMPRESSION: Fatty infiltration of the liver. Status post cholecystectomy. Left parapelvic renal cysts. No obstructive uropathy is seen. Reading Location: [id number] Abdomen/Pelvis CTA 04/24/25 14:04 IMPRESSION: Questionable colitis of the right hemicolon. No vascular abnormality is seen. Reading Location: [id number] Chest CT 04/24/25 14:04 IMPRESSION: Coronary artery calcification (CAC) is is present Mild degree of bibasilar atelectasis slightly worse at the left lung base. Reading Location: [id number] Assessment & Plan Assessment/Plan (1) Dysuria: (2) Leukocytosis: PLAN: Plan #Concern for UTI - Patient with dysuria with urinary hesitancy and dribbling since yesterday morning - Patient's has been giving him methenamine since then and while UA did not appear overtly infectious there was concern that this may have been a false negative due to methenamine - Given patient's convincing symptoms and elevated white blood cell count (though cannot rule out that is elevated due to recent knee steroid injection) patient was given a dose of Rocephin - Urine culture sent, will continue fluids and Rocephin - Checking Pro-Sukhwinder # Dry cough - Nonproductive, for the past 1 to 2 days also has some chills and aches - Will check viral panels #Hypertension - Continue patient's home losartan #?Hx lyme dz/babesiosis/Bartonella -Not presently on medication - Had been following with a integrative medicine clinic with a nurse practitioner - Discussed all this with patient and ED physician extensively - Patient would benefit from evaluation with a physician due to his multiple medical complaints with uvulitis and pancreatitis and other constellation of symptoms #DVT ppx: Lovenox subcu Falguni Murray MD Time spent in the patient's overall evaluation, decision-making process, review of diagnostic data, adjustment of management, discussion with other providers, nursing and ancillary staff involved in patient's care documentation, 58 Minutes Charges/Coding Visit Charges Inpatient E&M: 64734 Init Hosp L2
[2025-04-24] MEDS: Acetaminophen 500 MG Tablet 1000 MG PO (16:01)
[2025-04-24] MEDS: Ceftriaxone 1 GM/50 ML BAG IV (16:02)
--- NOTE | 2025-04-24 16:08 | CASEMGMT ---
Care Management Patient confirms no changes since last assessment. Plans to discharge home when medically ready. No further needs identified at this time. Billie Sargent, IRRIGATION TECHNICIAN, STAFF SUBMARINE [employer] OFFICER
[2025-04-24 16:31] LABS: Procalcitonin 0.23 ng/mL (<=0.10)
[2025-04-24 17:37] LABS: Erythrocyte Sedimentation Rate 13 mm/hr (0-20)
[2025-04-24] MEDS: Losartan Potassium 100 MG Tablet PO (18:10)
[2025-04-24] MEDS: Ketorolac 30 MG/ML Syringe IV (18:10)
[2025-04-24] MEDS: 0.9% Normal Saline (1000mL) 1,000 ML 100 ML IV (18:10)
[2025-04-25] MEDS: 0.9% Normal Saline (1000mL) 1,000 ML 100 ML IV (03:41)
[2025-04-25 03:51] VITALS: BP 148/80; PULSE 76; RESP 17; TEMP 36.9; O2SAT 95
[2025-04-25 06:56] LABS: Anion Gap 10 (5-15); BUN 10 mg/dL (4-19); BUN/Creat Ratio 14.7 RATIO (10-20); Calcium,Total 8.3 mg/dL (7.6-11.0); Carbon Dioxide 21.1 mmol/L (21.0-32.0); Chloride 104 mmol/L (98-108); Creatinine, Serum 0.71 mg/dL (0.70-1.20); EST Glomerular Filtration Rate 105 (>60); Estimated Creatinine Clearance 138.53 ml/min (50-250); Glucose 98 mg/dL (70-99); Sodium Level 135 mmol/L (133-145)
[2025-04-25] MEDS: Enoxaparin 40 MG/0.4 ML Syringe SC (08:50)
[2025-04-25] MEDS: Losartan Potassium 100 MG Tablet PO (08:50)
[2025-04-25] MEDS: Ketorolac 30 MG/ML Syringe IV (08:56)
[2025-04-25] MEDS: Ceftriaxone 1 GM/50 ML BAG IV (08:57)
[2025-04-25 08:58] LABS: Erythrocyte Sedimentation Rate 19 mm/hr (0-20)
[2025-04-25 08:59] LABS: Absolute Lymphocyte Count 0.84 X10^3/uL (0.83-4.51); Absolute Neutrophil Count 13.2 X10^3/uL (2.0-7.7); Basophil# 0.03 X10^3/uL; Basophil% 0.2 % (0-1); Eosinophils% 0.6 % (0-5); Hematocrit 44.8 % (40-54); Hemoglobin 14.9 g/dL (13.0-16.5); Lymphocyte # 0.84 X10^3/ul (0.83-4.51); Lymphocyte % 5.3 % (19-41); Mean Corp Hgb Conc 33.3 g/dL (32-36); Mean Corpuscular Hgb 31.6 pg (27.0-32.0); Mean Corpuscular Volume 94.9 fL (80-94); Mean Platelet Vol. 11.1 fl (6.2-12.0); Monocyte# 1.51 X10^3/uL; Monocyte% 9.6 % (0-10); NRBC Flagged by Analyzer 0 % (0-5); Neutrophil # 13.19 X10^3/uL (2.7-7.7); Neutrophil % 83.9 % (47-70); POSITIVE DIFFERENTIAL YES; Platelet Count 189 K/mm3 (150-450); RBC Distribution Width CV 13.8 % (11.6-14.6); RBC Distribution Width SD 48.1 fl (35.1-43.9); Red Blood Count 4.72 M/mm3 (4.6-6.2); White Blood Count 15.7 K/mm3 (4.4-11.0)
[2025-04-25 09:04] LABS: Differential Indicated SCAN CRITERIA MET
[2025-04-25 09:21] VITALS: BP 140/88; PULSE 71; RESP 18; TEMP 36.7; O2SAT 96
[2025-04-25 09:46] LABS: Platelet Estimate A (ADEQ)
--- NOTE | 2025-04-25 11:50 | DS.PCM_ITS ---
Providers Date of Admission: 04/24/25 Date of Discharge: 04/25/25 Primary Care Physician: Dr. Jose Garza DO Reason For Visit: POSSIBLE UTI Diagnosis Discharge Diagnosis (1) Dysuria: Status: Acute Code(s): R30.0 - Dysuria (2) Leukocytosis: Status: Acute Code(s): D72.829 - Elevated white blood cell count, unspecified Medications at Discharge Home Medications losartan 100 mg tablet 100 mg PO DAILY 10/04/23 methenamine-sodium salicylate 162 mg-162.5 mg tablet (Cystex Dual Action) 2 tab PO DAILY PRN URINARY PAIN 04/24/25 cefdinir 300 mg capsule 300 mg PO BID #16 caps 04/25/25 Hospital Course Operations None Summary of Care Provided Minutes Spent on Discharge: 25 Hospital Course: Mr. Mendoza is a 59-year-old white male who presents emergency department [facility] on 04/24/2025 with a chief complaint of dysuria. Patient states he had a little bit of left flank pain as well as some myalgias and chills like he had the flu. He states that his urine has appeared orange in nature and was just dribbling out. He also complained of a little bit abdominal pain but it sound like it was more suprapubic and left flank and came in waves. He does have a history of pancreatitis for which she was hospitalized at the end of February. Vital signs on presentation showed temperature 99.1, heart rate 111, respiratory was 20, blood pressure 111/99 pulse ox was 98% on room air. CBC shows significant leukocytosis with a left shift. He had a white count of 19,000. Chemistry panel showed mild hyponatremia with a sodium of 132. His UA was not suggestive of infection but the patient has been on methenamine so I am concerned that this may be causing his urine to look unremarkable when he could potentially have an infection. The CT of his abdomen pelvis was formed and showed questionable colitis on the right hemicolon but this was not consistent with any symptoms or physical findings. A CT of his chest was performed and showed mild atelectasis at the left base. He was admitted to medical floor and placed on IV Rocephin. After 2 doses of Rocephin he was feeling significantly improved. His dysuria has resolved. His flank pain has resolved. He was no longer having any chills or myalgias. Given his improvement on Rocephin we will discharge him to complete a course of antibiotics for complicated UTI with Silviaicef. He will have 8 more days to complete a 10-day course. Prescription was sent to local pharmacy. Have strongly encouraged him to follow-up with his outpatient primary care physician within the next 1 to 2 weeks. Patient was able to be discharged home in stable condition feeling much improved on 04/17/2025. I will monitor him as inpatient cultures which are still discharged to ensure antibiotics cover infectious etiology. I did discuss with the patient if the antibiotics are not covering his infection I would call him and transition antibiotics as needed. Discharge diagnoses: Suspected urinary tract infection Leukocytosis-resolving Acute hyponatremia Dry cough-outpatient follow-up Hypertension History of Lyme's/babesiosis/Bartonella Physical Exam Narrative Patient states he is feeling much better overall. Anxious to go home. States antibiotics seem to be helping. States his dysuria is resolved. Const alert, oriented x3, no apparent distress, no limitations, healthy appearing and well nourished; Negative for average body habitus Constitutional Narrative: Obese, older, white male, sitting up in bed, appears comfortable, nontoxic General Appearance: cooperative, comfortable, well kempt and well developed Exam Limitations: no limitations Nutritional Appearance: obese HEENT normocephalic, head/scalp atraumatic, hearing grossly normal bilaterally and moist oral mucous membranes Eyes conjunctivae normal Eyes Narrative: No scleral icterus Neck supple Neck Narrative: Trachea midline Resp normal respiratory effort, no retractions, no use of accessory muscles and clear to auscultation bilaterally Auscultation: Negative for rales, rhonchi or wheezes Cardio regular rate, regular rhythm, S1 normal heart sound, S2 normal heart sound, no murmurs, no rub, no gallops and no clicks GI normal to inspection, nondistended, normoactive bowel sounds, soft to palpation and non-tender Extremity no clubbing, cyanosis or edema Extremity Narrative: 2+ pedal pulses Neuro oriented x3, moves all extremities and no focal motor deficits Speech: speech normal Psych affect normal Psych Narrative: Very pleasant, interacts appropriately Weight / BMI Weight Weight: 104.9 kg Body Mass Index (BMI) 31.4 ABG / Lab / Microbiology Data 04/25/25 05:15 04/25/25 05:15 Laboratory: Laboratory Results - last 24 hr 04/24/25 12:00: WBC 19.0 H, RBC 4.97, Hgb 15.8, Hct 46.8, MCV 94.2 H, MCH 31.8, MCHC 33.8, RDW Std Deviation 46.5 H, RDW Coeff of Marty 13.5, Plt Count 209, MPV 10.2, Immature Gran % (Auto) 0.500, Neut % (Auto) 88.2 H, Lymph % (Auto) 3.3 L, [place] % (Auto) 7.7, Eos % (Auto) 0.1, Baso % (Auto) 0.2, Absolute Neuts (auto) 16.8 H, Absolute Lymphs (auto) 0.62 L, Nucleated RBC % 0, ESR 13, PT 13.6, INR 1.0, APTT 26.2, Sodium 132 L, Potassium 3.9, Chloride 97 L, Carbon Dioxide 25.4, Anion Gap 10, BUN 12, Creatinine 0.90, Estim Creat Clear Calc 109.98, Est GFR (MDRD) Non-Af 98, BUN/Creatinine Ratio 12.8, Glucose 140 H, Lactic Acid 1.8, Calcium 8.5, Total Bilirubin 0.75, AST 41 H, ALT 47, Alkaline Phosphatase 85, C- React Prot Ext Range 61.50 H, Total Protein 6.6, Albumin 3.9, Globulin 2.7, Albumin/Globulin Ratio 1.4, Lipase 22, Procalcitonin 0.23 H 04/24/25 12:35: Urine Color Yellow, Urine Clarity Clear, Urine pH 6.5, Ur Specific [place] 1.015, Urine Protein 15 H, Urine Glucose (UA) Normal, Urine Ketones Negative, Urine Occult Blood Negative, Urine Nitrite Negative, Urine Bilirubin Negative, Urine Urobilinogen Normal, Ur Leukocyte Esterase 25 H, Urine RBC 0 SEEN, Urine WBC 0-5 SEEN, Ur Squamous Epith Cells 0 SEEN, Urine Bacteria 0 SEEN, Urine Mucus 0 SEEN 04/25/25 05:15: WBC 15.7 H, RBC 4.72, Hgb 14.9, Hct 44.8, MCV 94.9 H, MCH 31.6, MCHC 33.3, RDW Std Deviation 48.1 H, RDW Coeff of [place] 13.8, Plt Count 189, MPV 11.1, Immature Gran % (Auto) 0.400, Neut % (Auto) 83.9 H, Lymph % (Auto) 5.3 L, [place] % (Auto) 9.6, Eos % (Auto) 0.6, Baso % (Auto) 0.2, Absolute Neuts (auto) 13.2 H, Absolute Lymphs (auto) 0.84, Nucleated RBC % 0, Platelet Estimate A, ESR 19, Sodium 135, Potassium 4.0, Chloride 104, Carbon Dioxide 21.1, Anion Gap 10, BUN 10, Creatinine 0.71, Estim Creat Clear Calc 138.53, Est GFR (MDRD) Non-Af 105, BUN/Creatinine Ratio 14.7, Glucose 98, Calcium 8.3, C-React Prot Ext Range 120.00 H, Procalcitonin 0.30 H Microbiology: Microbiology 04/24/25 17:35 Mucosa - Nasopharyngeal Respiratory Panel (PCR) - Final 04/24/25 15:50 Mucosa - Nose SARS-CoV-2, Influenza & RSV (PCR) - Final Radiography Diagnostic Testing: Radiology Impression Chest X-Ray 04/24/25 11:50 IMPRESSION: Lungs appear clear. No pleural effusion or pneumothorax is noted. The cardiomediastinal silhouette is within the normal range. No acute osseous process is seen. No evidence of acute cardiopulmonary disease. Reading Location: [facility]-1 Abdomen/Pelvis CT 04/24/25 12:15 IMPRESSION: Fatty infiltration of the liver. Status post cholecystectomy. Left parapelvic renal cysts. No obstructive uropathy is seen. Reading Location: [id number] Abdomen/Pelvis CTA 04/24/25 14:04 IMPRESSION: Questionable colitis of the right hemicolon. No vascular abnormality is seen. Reading Location: [id number] Chest CT 04/24/25 14:04 IMPRESSION: Coronary artery calcification (CAC) is is present Mild degree of bibasilar atelectasis slightly worse at the left lung base. Reading Location: [facility] D/C Instructions Discharge Diet: No restrictions Discharge Activity: Return to Normal Activity Return to work on: 04/27/25 DC O2, CPAP, BIPAP Needs Home O2 Discharge instructions: No Meaningful Use Info Meaningful Use Meaningful Use Diagnoses (Choose all that apply): None applicable Ischemic Stroke Statin Dosing Therapy Reference: STATIN DOSE THERAPY REFERENCE: * Patients > 75 years receive moderate or high dose statin therapy. * Patients 75 years or YOUNGER should receive HIGH intensity statin dose unless contraindicated. You will be required to document reason for non-treatment if statin daily dose does not meet guidelines. HIGH DOSE STATIN THERAPY DAILY Atorvastatin > than or = to 40 mg Rosuvastatin > than or = to 20 mg Amlodipine + Atorvastatin > than or = to 2.5/40 mg Ezetimibe + Simvastatin 10/80 mg Simvastatin 80mg Discharge Plan Admission Admit Date/Time: 04/24/25 15:54 Primary Reason for Your Visit: Dysuria Attending Provider: Imelda Rivera Primary Care Provider: Jose Garza Consulting Providers: Falguni Murray Instructions Additional Instructions / Restrictions: 1. Please complete the entire antibiotic course as directed Discharge Orders/Prescriptions Prescriptions: New cefdinir 300 mg capsule 300 mg PO BID Qty: 16 0RF Continued losartan 100 mg tablet 100 mg PO DAILY Cystex Dual Action 162-162.5 mg tablet 2 tab PO DAILY PRN (Reason: URINARY PAIN) Referrals / Follow Up: Jose Garza DO [Primary Care Provider] - Within 2 Weeks Disposition Disposition (needs filled in before D/C Order can be placed): Home, Self Care Charges/Coding Visit Charges Inpatient E&M: 30391 Disch Hosp
== END 2025-04-25 12:40 | disposition home or self-care (01) ==
LOC: ED 15:16 → MS3 16:20
PROVIDERS: Admitting Provider Internal Medicine; Emergency Provider Emergency Medicine; PCP Family Medicine; Visit Provider Internal Medicine
DX: R30.0 Dysuria (principal); K52.9 Noninfective gastroenteritis and colitis, unspecified; Z86.718 Personal history of other venous thrombosis and embolism; I10 Essential (primary) hypertension; Z82.49 Family history of ischemic heart disease and other diseases of the circulatory system; E87.1 Hypo-osmolality and hyponatremia; E78.5 Hyperlipidemia, unspecified; Z79.899 Other long term (current) drug therapy; D72.829 Elevated white blood cell count, unspecified; R05.9 Cough, unspecified; I45.10 Unspecified right bundle-branch block; R94.31 Abnormal electrocardiogram [ECG] [EKG]
CPT/HCPCS: J2405; 36415; 71045; 71260; 74174; 74176; 80048; 80053; 81001; 83605; 83690; 84145; 85025; 85610; 85652; 85730; 86140; 87040; 87086; 87088; 87631; 87633; 93005; 96361; 96365; 96366; 96372; 96375; 96376; 99221; 99285; Q9967; A4216; G0378